=== PATIENT | male | born 1935 | race Caucasian/White ===

== ENCOUNTER 2016-11-08 15:44 | Inpatient (IN) | payer MEDICARE, OTHER ==
[~2016-11-08] VITALS: Ht 172.7 cm; Wt 77.3 kg
[2016-11-08 15:48] VITALS: BP 111/67; PULSE 107; RESP 14; O2SAT 91
--- NOTE | 2016-11-08 15:57 | ED.REPORT ---
HPI-General Illness Date of Service November 08, 2016 ED Provider: Edy Hart MD Patient is an 81 year old male with a history of fibromyalgia, an enlarged prostate and hypertension who presents to the ED complaining of general weakness onset two days ago. Associated symptoms include dysuria, cough, fever and urinary retention. Per the patient's , the patient collapsed this morning and last night but did not lose consciousness. He denies shortness of breath. Per the patient's daughter, the patient hasn't been drinking much fluids lately. He is not currently taking any anticoagulants but is on Prednisone. Patient denies recent head trauma or injury. Nursing Notes Stated Complaint: WEAKNESS Chief Complaint: General Complaint Nursing Notes Reviewed: Yes Allergies: Coded Allergies: No Known Allergies (Unverified , 11/08/16) Scheduled Amitriptyline (Amitriptyline) 10 Mg Tablet 20 MG PO HS Cholecalciferol (Vitamin D3) (Vitamin D3) 2,000 Unit Tablet 4,000 UNIT PO QAM Fish Oil/Dha/Epa (Fish Oil 1,200 mg Fish Oil) 1 Each Capsule 1 EACH PO BIDWM Multivit with Calcium,Iron,Min (Therapeutic M) 1 Each Tablet 1 EACH PO DAILY PredniSONE (PredniSONE) 1 Mg Tab 4 MG PO DAILYWM PREDNISONE 4 MG IN AM AND 2 MG IN PM PredniSONE (PredniSONE) 1 Mg Tab 2 MG PO DAILYWD PREDNISONE 4 MG IN AM AND 2 MG IN PM Tadalafil (Cialis) 5 Mg Tablet 5 MG PO HS Terazosin (Terazosin) 10 Mg Capsule 10 MG PO HS General Time Seen by MD: 15:56 Chief Complaint Weakness Hx Obtained From: Patient, Spouse Sudden in Onset?: Yes Onset Occurred: 2 days ago Symptom Duration: Since onset Associated with: Reports: Cough, Fever Recent Healthcare: No recent doctor visit, No recent hospitalization Past Medical History Past Medical History Notes: Code status: full code Past Medical History fibromyalgia enlarged prostate Reports: Hypertension Past Surgical History none reported Smoking History Unknown if Ever Smoker Social History Alcohol Use: "Social" Other Social History: Good social support, Ambulatory Status Independent Review of Systems Full Review of Systems Constitutional: Reports: Fever, Weakness - generalized Respiratory: Reports: Non-productive cough, Denies: Shortness of breath Male: Reports Dysuria, Reports Urination decreased Neurologic: Reports: Weakness, Denies: Change LOC Complete sys rev & neg: except as marked. Physical Exam Vital Signs Vital Signs Date Time Temp Pulse Resp B/P Pulse Ox O2 Delivery O2 Flow Rate FiO2 11/08/16 17:51 93 33 120/66 91 Nasal Cannula 3 11/08/16 16:44 38.1 98 20 135/71 94 11/08/16 15:48 37.7 107 14 111/67 91 Room Air Initial VS: Reviewed General/Constitutional: Awake, Alert Head / Eyes: Atraumatic, Normocephalic, PERRL, EOMI ENT: Atraumatic, Airway patent Mouth: Positive: Mucous membranes dry Neck: Atraumatic, Supple Respiratory / Chest: Atraumatic, Breath sounds NL, Breath sounds = bilat, No respiratory distress tachypneic Cardiovascular: Heart sounds NL, No gallop, No murmurs Heart Rate / Rhythm: Positive: Tachycardia Abdomen: Atraumatic, Soft, Non-tender Bowel Sounds / Distention: Positive: Bowel sounds hypoactive bladder not palpably distended Back: Atraumatic, Non-tender, No paraspinal tenderness, No CVA tenderness Lower Extremity / Pelvis / MS: Atraumatic, Full range of motion strength 5/5 bilateral moving all extremities Skin: Atraumatic, Color NL, No rash, Warm, Dry Neurologic: Oriented X3, No motor deficits, No sensory deficits Psychiatric: Affect NL, Mood NL Interpretation & Diagnostics Lab Results Interpretation Result Diagram: 11/08/16 1618 11/08/16 1618 Test 11/08/16 16:18 11/08/16 16:40 11/08/16 17:34 White Blood Count 9.7th/mm3 (3.8-10.1) Red Blood Count 4.70mil/mm3 (4.40-5.80) Hemoglobin 14.2g/dL (13.8-17.2) Hematocrit 40.7% (41.0-50.0) Mean Corpuscular Volume 86.6fL (81-100) Mean Corpuscular Hemoglobin 30.2pg (27.0-35.0) Mean Corpuscular Hemoglobin Concent 34.9% (32.0-37.0) Red Cell Distribution Width 14.4% (12.3-15.4) Platelet Count 181bil/L (150-400) Neutrophils (%) (Auto) 75.1% (40-74) Lymphocytes (%) (Auto) 10.8% (14-46) Monocytes (%) (Auto) 13.4% (4-12) Eosinophils (%) (Auto) 0.1% (0-5) Basophils (%) (Auto) 0.3% (0-3) Erythrocyte Sedimentation Rate 18mm/hr (0-30) Sodium Level 129mEq/L (134-144) Potassium Level 3.5mEq/L (3.5-5.2) Chloride Level 95mEq/L (97-108) Carbon Dioxide Level 17mmol/L (18-29) Blood Urea Nitrogen 21mg/dL (8-27) Creatinine 1.28mg/dL (0.76-1.27) Estimat Glomerular Filtration Rate 57mL/min (>59) Glucose Level 160mg/dL (60-99) Calcium Level 8.5mg/dL (8.5-10.1) Total Bilirubin 1.9mg/dL (0.0-1.2) Aspartate Amino Transf (AST/SGOT) 16U/L (0-50) Alanine Aminotransferase (ALT/SGPT) 11U/L (0-44) Alkaline Phosphatase 43U/L (25-160) Troponin T < 0.010ug/L (0.0-0.011) Total Protein 6.8g/dL (6.4-8.4) Albumin 3.1g/dL (3.4-5.0) Lipase 14U/L (13-60) Lactic Acid Level 1.3mmol/L (0.4-2.0) Urine Color Dark yellow (YELLOW) Urine Appearance Clear (CLEAR,HAZY) Urine pH 6.0 (5.0-8.0) Urine Specific Steedman 1.020 (1.003-1.035) Urine Protein 30mg/dL (NEG,TRACE) Urine Glucose (UA) Negativemg/dL (NEGATIVE) Urine Ketones Negativemg/dL (NEGATIVE) Urine Occult Blood Moderate (NEGATIVE) Urine Nitrite Negative (NEGATIVE) Urine Bilirubin Negative (NEGATIVE) Urine Urobilinogen 2.0mg/dL (NORMAL) Urine Leukocyte Esterase Negative (NEGATIVE) Urine RBC 3-10/hpf (0-2) Urine WBC 0-5/hpf (0-5) Urine Epithelial Cells None/hpf (NONE-MOD) Urine Crystals None seen (NONE SEEN) Urine Bacteria Few/hpf (NONE-FEW) Urine Hyaline Casts None/lpf (NONE) Urine Granular Casts None seen (NONE SEEN) Urine Waxy Casts None seen (NONE SEEN) Urine Red Blood Cell Casts None seen (NONE SEEN) Urine White Blood Cell Casts None seen (NONE SEEN) Urine Mucus None seen (None Seen) Urine Trichomonas None seen (NONE SEEN) Urine Yeast None (NONE SEEN) Urinalysis Comment None Urine Culture Reflexed Not indicated ECG Interpretation ECG Interpretation: sinus tachycardia, rate 99 LBBB Time: 16:48 Interpreted by: ED physician X-Ray Chest Interpretation Chest Xray Interpretation: IMPRESSION: Bilateral perihilar pulmonary opacities most consistent with pneumonia. Recommend radiographic followup to resolution. If findings persist, chest CT with contrast will be needed to exclude any underlying mass. Dictated by: Darnell Moya M.D. on 11/08/2016 at 17:12 Approved by: Darnell Moya M.D. on 11/08/2016 at 17:13 View: Portable, 1 view Interpretation / Wet Read by: Interpret - Radiologist Re-Eval/Medical Decision Med Decision/Clinical Course 81-year-old male on chronic prednisone for polymyalgia rheumatica. Generalized weakness for 48 hours with fever and tachypnea. On arrival he appears ill. Had not taken his prednisone today. Given normal saline 2 L hydrocortisone 100 mg IV. Blood cultures are obtained. Chest x-ray shows no pneumonia, he has had no recent hospitalizations or antibiotic treatment therefore treated with antibiotic coverage for community acquired pneumonia. We will be admitted to the hospitalist service. Source of Hx: Old records Time of Eval: 17:27 Re-Evaluation/Progress Note: Discussed code status: full code. Discussed results and plan for admit. The patient understands and agrees to the plan for admit. All questions were addressed. Consultation : Referral / Consult Name: Sky Mays MD Consulted With: Hospitalist Call Returned at: 17:57 Independent Producer: Agrees with eval, Agrees with plan, Accepts admit Counseled Regarding: Diagnosis, Lab results, Need for admission Discharge & Departure Primary Impression: Pneumonia Pneumonia type: due to unspecified organism Laterality: bilateral Lung location: unspecified part of lung Qualified Code: J18.9 - Pneumonia, unspecified organism Additional Impression: Weakness Disposition: ADMITTED TO HOSPITAL Discharge Condition All VS Reviewed: Yes Condition: Stable Referrals: Isaac Nails MD (PCP) Scarlet Dyson MD Attestation Portions of this note were transcribed by Gabriela Amaya. I, Dr. Chahal personally performed the history, physical exam and medical decision-making; I reviewed and confirmed the accuracy of the information in the transcribed note. Signed by: Andrés Huston, 11/08/16 and 1800 copies to: Isaac Nails MD; Scarlet Dyson MD, Donald L MD November 08, 2016 15:57 Nydia Amaya November 08, 2016 16:13
[2016-11-08] MEDS ORDERED: 0.9% Sodium Chloride 1,000 ML IV ONE ×2 (16:18→17:35)
[2016-11-08] MEDS ORDERED: Hydrocortisone 50 mg/mL 2 mL Inj IVPUSH ONE (16:20)
[2016-11-08 16:44] VITALS: BP 135/71; PULSE 98; RESP 20; O2SAT 94
[2016-11-08 16:53] LABS: BASOPHILS % (AUTO) 0.3 % (0-3); EOSINOPHILS % (AUTO) 0.1 % (0-5); MONOCYTES % (AUTO) 13.4 % (4-12); Mean Corpuscular Hemoglobin 30.2 pg (27.0-35.0); Mean Corpuscular Volume 86.6 fL (81-100); NEUTROPHILS % (AUTO) 75.1 % (40-74); Platelet Count 181 bil/L (150-400)
[2016-11-08 17:14] LABS: TROPONIN T < 0.010 ug/L (0.0-0.011)
--- NOTE | 2016-11-08 17:14 | DRSVH ---
PROCEDURE: X-RAY CHEST ONE VIEW, PORTABLE ([id number]) INDICATIONS: sepsis TECHNIQUE: One view of the chest was acquired. COMPARISON: [facility], CR, XR CHEST 2VW, 09/24/2015, 16:35. FINDINGS: Surgical changes and devices: None. Lungs and pleura: No pleural effusions or pneumothorax. Bilateral perihilar pulmonary opacities. Mediastinum: Mediastinal contours appear normal. Heart size is normal. Bones and chest wall: No suspicious bony lesions. Overlying soft tissues appear unremarkable. IMPRESSION: Bilateral perihilar pulmonary opacities most consistent with pneumonia. Recommend radiogr aphic followup to resolution. If findings persist, chest CT with contrast will be needed to exclude a ny underlying mass. Dictated by: Darnell Moya M.D. on 11/08/2016 at 17:12 Approved by: Darnell Moya M.D. on 11/08/2016 at 17:13
[2016-11-08 17:22] LABS: Lipase 14 U/L (13-60); Magnesium 1.6 mg/dL (1.6-2.6)
[2016-11-08 17:23] LABS: ERYTHROCYTE SEDIMENTATION RATE 18 mm/hr (0-30)
[2016-11-08] MEDS ORDERED: Azithromycin Inj 500 MG in Dextrose 5% w/Vial Mate 250 ML IV ONE (17:35)
[2016-11-08] MEDS ORDERED: cefTRIAXone Inj 2,000 MG in Dextrose 5% Minibag Plus 50 ML IV ONE (17:35)
[2016-11-08 17:47] LABS: APPEARANCE,URINE CLEAR (CLEAR,HAZY); COLOR,URINE DARK YELLOW (YELLOW); OCCULT BLOOD,URINE MODERATE (NEGATIVE)
[2016-11-08 17:51] VITALS: BP 120/66; PULSE 93; RESP 33; O2SAT 91
[2016-11-08] MEDS: 0.9% Sodium Chloride 1,000 ML IV SCH (17:59)
[2016-11-08] MEDS ORDERED: Polyethylene Glycol (PEG) 17 Gm Powder PO PRN (18:00)
[2016-11-08] MEDS ORDERED: Alum-Mag Hydrox-Simeth 30 mL Suspension PO PRN (18:00)
--- NOTE | 2016-11-08 18:35 | PCM.HPMED ---
Subjective Date of Service November 08, 2016 Primary Provider: Admitting Physician: Sky Mays MD Primary Care Physician: Wilton Alvarado MD Attending Physician: Sky Mays MD Admit Status: From the Emergency Department, Admit to [facility] Team Chief Complaint: 81-year-old generally healthy man presents with acute onset weakness fever and cough History of Present Illness: Patient was in usual state of health until one day prior to admission. At that time he noted anorexia, as well as fever and chills. He awakened on the day of admission feeling extremely fatigued. His fatigue worsened and he experienced tremulousness. He also notes increased cough on the day of admission but no purulent phlegm. His family noticed his reduced energy and brought him to emergency department where he was noted to be febrile and tachycardic. On review of systems: No significant headache. No sinus or throat complaints except dehydration. He had transient right-sided nonpleuritic chest pain this morning which resolved spontaneously. Otherwise no chest discomfort. No abdominal complaints except increased stool frequency today without diarrhea.. He endorses discomfort with urination. He has no flank pain, perineal pain or pain with passage of bowel movements. Review of Systems: 11 system ROS performed. Significant findings noted in history of present illness. Allergies Coded Allergies: No Known Allergies (Unverified , 11/08/16) Home Medications Amitriptyline 20 mg at bedtime Cholecalciferol 4000 units daily Prednisone 6 mg daily Tadalafil 5 mg at bedtime Terazosin 10 mg at bedtime PMH # polymyalgia rheumatica on prednisone 6 mg per day symptoms well controlled # prostatic enlargement - upcoming appointment with Dr. Dyson # History of pneumonia 3 years ago Family History Familial infectious or immune deficiencies. 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 Hx Alcohol Use: Yes (1-2 beers twice per week, rarely 3 beers) Hx Substance Use: No Smoking Status: Former Smoker (smoked for 10 years from age [age]), Unknown if Ever Smoker Living Arrangement: with Family Exam Vital Signs Vital Sign - Last Date Time Temp Pulse Resp B/P Pulse Ox O2 Delivery O2 Flow Rate FiO2 11/08/16 17:51 93 33 120/66 91 Nasal Cannula 3 11/08/16 16:44 38.1 Exam Constitutional: Suntanned, appears fatigued; no acute distress; vital signs noted Eyes: sclerae anicteric, no conjunctival pallor, ENMT: ears, nose atraumatic; oral mucosa very dry Neck: supple, JVD absent Chest: symmetric expansion, no pain or lesions Resp: Inspiratory crackles bibasilar left greater than right, no wheezes, rales or dullness Cardiac: S1, S2, regular, no murmur Abdomen: bowel sounds present, nontender, no organomegaly : inspection WNL, no palpable bladder discomfort Musculoskeletal: no joints with acute erythema, swelling; contractures right hand Skin and soft tissues: no rash; no pitting edema Peripheral pulses: normal at wrist, feet Lymphatic: no adenopathy cervical Neurological: Cranial Nerves - face symmetric Reflexes - BJ, KJ symmetric 1+ Motor - 5/5 strength, normal tone Coordination - normal movement, no tremor Sensory - light touch intact Psych & Mental Status - lethargic but generally oriented Lab and Diagnostics Result Diagram: 11/08/16 1618 11/08/16 1618 X-Rays, CTs and MRIs PROCEDURE: X-RAY CHEST ONE VIEW, PORTABLE ([id number]) IMPRESSION: Bilateral perihilar pulmonary opacities most consistent with pneumonia. Recommend radiographic followup to resolution. If findings persist, chest CT with contrast will be needed to exclude any underlying mass. Dictated by: Darnell Moya M.D. on 11/08/2016 at 17:12 . 12-lead ECG 11/08 16:48 Sinus rhythm with first-degree AV block, left bundle branch block, nonspecific ST-T wave changes, QTC 524 Assessment & Plan Generally healthy 81-year-old man presents with acute onset of fevers, chills, cough and weakness, seizures criteria and pulmonary infiltrates. # Pneumonia, acute, present on admission. SIRS criteria temperature 38.1, heart rate 107. Blood pressure stable and lactate is not elevated. No severe sepsis. Mild oxygen deficit. Mild metabolic encephalopathy. Clinical diagnosis is community-acquired pneumonia. CURB65 is 3 for age, BUN, mild confusion. - Ceftriaxone plus azithromycin - Sputum culture - Respiratory pathogen PCR - Oxygen as needed - IV hydration # Acute kidney injury. Admitting serum creatinine 1.28. Urine concentrated likely prerenal azotemia - IV hydration - Repeat BMP in a.m. and further workup if persistent # Hyponatremia, acute. Likely hypovolemic hyponatremia. Likely mild. - IV normal saline hydration - Repeat BMP # Dysuria, acute. Differential is UTI versus bladder discomfort due to dehydration and urine concentration. Urinalysis shows concentration but no significant pyuria or bacteriuria. - Follow symptoms clinically -Tamsulosin 0.4 # Hyperbilirubinemia, duration unknown. Systemic infection related versus benign hyperbilirubinemia (Gilbert's). There are no right upper quadrant symptoms. - Consider repeat CMP in 2 days and further workup if persistent # Left bundle branch block, first-degree AV block, duration unknown. Patient also gave history of transient right-sided chest pain which seems nonanginal. - Telemetry monitoring - Repeat troponin # Polymyalgia rheumatica, chronic. The patient is on a non-suppressive dose of prednisone. No indication for hydrocortisone stress dosing. - Continue usual prednisone # Venous thrombolysis and prophylaxis -Heparin Pain Evaluation: Adequate Pain Control VTE Prophylaxis: Sub-Q Heparin (Unfractionated) Resuscitation Status: CPR: Attempt Resuscitation Time spent 70 minutes Sky Mays MD November 08, 2016 18:35
[2016-11-08 18:53] VITALS: BP 120/66; PULSE 93; RESP 33; O2SAT 91
[2016-11-08] MEDS ORDERED: CHOL200025 PO (18:55)
[2016-11-08] MEDS ORDERED: PRD1T PO ×2 (18:55)
[2016-11-08] MEDS ORDERED: MULT-140 PO (18:55)
[2016-11-08] MEDS ORDERED: FISH1CAP15 PO (18:55)
[2016-11-08] MEDS ORDERED: TERA10CA5 PO (18:55)
[2016-11-08] MEDS ORDERED: TADA5TAB2 PO (18:55)
[2016-11-08] MEDS ORDERED: AMIT10TA6 PO (18:55)
[2016-11-08 19:07] VITALS: PULSE 95
--- NOTE | 2016-11-08 19:13 | NUR ---
Arrived He arrived from the ED with his and daughter about 1844 and was settled into his room PCC [id number]. Report received from Renetta Huber RN in the ED. Call light placed by him, on 2L of O2, telemetry placed, ensured his IV antibiotics were continuing to infuse, and family wrote contact numbers on the white board. Because it was change of shift the admit and assessment was not completed by this nurse. Gave report to Sivan Bolivar RN. Care continues.
[2016-11-08 20:25] VITALS: BP 109/66; PULSE 84; RESP 32; O2SAT 90
[2016-11-08] MEDS: Potassium Chloride 20 mEq SR Tablet PO SCH (20:37)
[2016-11-08] MEDS: Heparin 5,000 Unit/mL Inj SUBQ SCH (23:39)
[2016-11-09] VITALS (7 sets, daily range): BP systolic 112–151; BP diastolic 61–94; PULSE 87–111; RESP 18–22; O2SAT 91–94
[2016-11-09 04:27] LABS: BASOPHILS % (AUTO) 0.1 % (0-3); EOSINOPHILS % (AUTO) 0.5 % (0-5); MONOCYTES % (AUTO) 11.8 % (4-12); Mean Corpuscular Hemoglobin 29.9 pg (27.0-35.0); Mean Corpuscular Volume 88.6 fL (81-100); NEUTROPHILS % (AUTO) 74.3 % (40-74); Platelet Count 182 bil/L (150-400)
[2016-11-09 05:14] LABS: TROPONIN T 0.01 ug/L (0.0-0.011)
--- NOTE | 2016-11-09 05:18 | NUR ---
Respiratory Pt on 2L NC at beginning of shift with SpO2 89-91%; oxygen increased to 3L with [id number] effect on saturation. Pt switched to oxymask 3L with improvement in SpO2 to 93-94%. Admission documentation completed with patient. Pt requested followup regarding advance directive. IVF infusing at 100mls/hr. VSS, tele SR 90s IVCD with AVBI. Up with 1PA, tolerates well.
[2016-11-09] MEDS: 0.9% Sodium Chloride 1,000 ML IV SCH ×2 (05:41→20:07)
[2016-11-09] MEDS: Potassium Chloride 20 mEq SR Tablet PO SCH ×2 (08:00→12:42)
[2016-11-09] MEDS: predniSONE 1 mg Tablet PO SCH (09:35)
[2016-11-09] MEDS: Heparin 5,000 Unit/mL Inj SUBQ SCH ×3 (09:38→23:27)
[2016-11-09] MEDS: cefTRIAXone Inj 2,000 MG in Dextrose 5% Minibag Plus 50 ML IV SCH (09:42)
[2016-11-09] MEDS: Azithromycin Inj 500 MG in Dextrose 5% w/Vial Mate 250 ML IV SCH (10:20)
--- NOTE | 2016-11-09 13:45 | NUR ---
Evaluation completed. Please go to "Notes" then click on "Assessments and Notes" (bottom left corner of screen). Then select appropriate discipline tab on top of screen.
--- NOTE | 2016-11-09 14:19 | PCM.PNMED ---
Subjective Date of Service November 09, 2016 Subjective He is feeling better today. Less cough which is mostly nonproductive. Less dyspnea and less weakness. No nausea, vomiting or abdominal pain. No fevers or chills. He does not really chronic history of choking. No overnight events Exam Vital Signs Vital Sign - Last Date Time Temp Pulse Resp B/P Pulse Ox O2 Delivery O2 Flow Rate FiO2 11/09/16 13:12 37.3 20 112/61 91 Room Air 11/09/16 10:24 111 11/09/16 00:21 3.00 Intake and Output 11/08/16 11/08/16 11/09/16 Cumulative From/Thru 15:00 23:00 07:00 11/08/16 15:48 - 11/09/16 06:42 Intake Total 1000 ml 2910 ml 3910 ml Output Total 1200 ml 1200 ml Balance 1000 ml 1710 ml 2710 ml Intake Oral 700 ml 700 ml IV Total 1000 ml 2210 ml 3210 ml Output Urine Total 1200 ml 1200 ml Exam Alert and oriented -3, no distress. Fluent speech Anicteric sclera. Lungs are clear with normal rate and effort Heart is regular without murmur gallop or rub Abdomen soft nontender, flat Extremities are free of edema. Skin is free of rash or lesions. IVs and Medications Medications Reviewed: Medications were reviewed in detail Lab and Diagnostics Result Diagram: 11/09/16 0415 11/09/16 0415 X-Rays, CTs and MRIs PROCEDURE: X-RAY CHEST ONE VIEW, PORTABLE ([id number]) IMPRESSION: Bilateral perihilar pulmonary opacities most consistent with pneumonia. Recommend radiographic followup to resolution. If findings persist, chest CT with contrast will be needed to exclude any underlying mass. Dictated by: Darnell Moya M.D. on 11/08/2016 at 17:12 . 12-lead ECG 11/08 16:48 Sinus rhythm with first-degree AV block, left bundle branch block, nonspecific ST-T wave changes, QTC 524 Assessment & Plan Generally healthy 81-year-old man presents with acute onset of fevers, chills, cough and weakness, seizures criteria and pulmonary infiltrates. # Community-acquired Pneumonia, acute, present on admission and improving. SIRS criteria temperature 38.1, heart rate 107. Blood pressure stable and lactate is not elevated. No severe sepsis. Mild oxygen deficit. Mild metabolic encephalopathy. Clinical diagnosis is community-acquired pneumonia. CURB65 is 3 for age, BUN, mild confusion. - Ceftriaxone plus azithromycin - Sputum culture - Respiratory pathogen PCR - Oxygen as needed - IV hydration decrease fluids to 50 an hour #. Dysphagia with a history of choking, by mouth weight. Speech evaluation to check swallow. # Acute kidney injury. POA, and improving. Admitting serum creatinine 1.28. Urine concentrated likely prerenal azotemia - IV hydration, decreased rate - Repeat BMP in a.m. and further workup if persistent # Hyponatremia, acute. POA, and improving. Likely hypovolemic hyponatremia. Likely mild. - IV normal saline hydration -Follow BMP # Dysuria, acute. Differential is UTI versus bladder discomfort due to dehydration and urine concentration. Urinalysis shows concentration but no significant pyuria or bacteriuria. - Follow symptoms clinically -Tamsulosin 0.4, this is relatively stable. The patient has a prostate biopsy scheduled for Wednesday so we may leave the Kauffman catheter in at this point which was placed for retention. # Hyperbilirubinemia, duration unknown. POA, stable Systemic infection related versus benign hyperbilirubinemia (Gilbert's). There are no right upper quadrant symptoms. - Consider repeat CMP in 2 days and further workup if persistent, follow clinically. # Left bundle branch block, first-degree AV block, duration unknown. Patient also gave history of transient right-sided chest pain which seems nonanginal. - Telemetry monitoring - Repeat troponin # Polymyalgia rheumatica, POA and chronic. The patient is on a non-suppressive dose of prednisone. No indication for hydrocortisone stress dosing. - Continue usual prednisone # Venous thrombolysis and prophylaxis -Heparin VTE Prophylaxis: Sub-Q Heparin (Unfractionated) Resuscitation Status: CPR: Attempt Resuscitation Emeka Jansen MD November 09, 2016 14:19
--- NOTE | 2016-11-09 16:20 | NUR ---
Social Work Note: Initial Assessment Data& Assessment: EMR reviewed. SW met with pt and pt at bedside to discuss discharge planning, SW role explained. SW phone number provided on pt white board. Moshe Contreras is a 81 year old male admitted on 11/08/2016 for pneumonia and sepsis. Pt has [employer] [facility] [place] insurance coverage. Pt does not have VA benefits or LTC insurance. Pt sees Wilton Alvarado MD for primary care. Pt lives in [place] with his spouse in a one story home and is independent at baseline. Pt drives and does not use any DME. Pt does not have SNF or HH hx. Pt to transport pt home when medically ready. Pt and pt deny any other needs. No other discharge needs identified. SW to continue to follow in case pt needs or MD orders arise. Plan: Anticipated discharge home via POV when medically ready. Pt and pt deny any other needs. No other discharge needs identified. SW to continue to follow in case pt needs or MD orders arise. JEANNA Fonseca Addendum: 11/09/16 at 1624 by MARILU ARMAS Amended: Links added.
--- NOTE | 2016-11-09 18:17 | NUR ---
COUGHING NOTED AFTER PO INTAKE EVALUATED PATIENT HAVING DIFFICULTY AND COUGH AFTER ORAL INTAKE, EVALUATED OCCURRENCES WHEN HOME, PT. INDICATES HAPPENS OFTEN. MD INFORMED, SPEECH THERAPY EVAL ORDERED SPEECH THERAPY RECOMMENDED EDUCATION OF SMALL SIPS AND BITES, CHIN TUCK, AND MEDICATION IN SAUCE (APPLESAUCE/PUDDING)
--- NOTE | 2016-11-09 23:29 | NUR ---
cough Pt having persistent cough tonight preventing him from being able to sleep. MD notified and orders for Tessalon Pearles and given. Pt feels it has helped and cough is improving.
[2016-11-10] MEDS ORDERED: Codeine-guaiFENesin 10 mL Syrup PO ONE (00:15)
[2016-11-10 01:44] VITALS: BP 142/90; PULSE 89; RESP 20; O2SAT 98
[2016-11-10 03:25] VITALS: BP 150/98; PULSE 104; RESP 22; O2SAT 95
--- NOTE | 2016-11-10 05:52 | NUR ---
cough/sats Cough returned and patient unable to sleep. MD notified and one time order for Guifenesin given. Finally able to sleep around 3 AM. Sats decreased to upper 80's during this time and placed on 2 liters nasal cannula. Sats have been in mid-90's on oxygen. Denies pain. Up with standby assist to bathroom for BM. Kauffman draining yellow urine.
[2016-11-10] MEDS: predniSONE 1 mg Tablet PO SCH (07:44)
[2016-11-10] MEDS: cefTRIAXone Inj 2,000 MG in Dextrose 5% Minibag Plus 50 ML IV SCH (07:45)
[2016-11-10] MEDS: Heparin 5,000 Unit/mL Inj SUBQ SCH (07:51)
[2016-11-10 07:55] VITALS: BP 151/93; PULSE 95; RESP 26; O2SAT 95
--- NOTE | 2016-11-10 08:29 | NUR ---
Respiratory Pt c/o increased SOB and feeling that he "could not get enough air." Pt sat up on side of bed. Checked oxygen saturation and it was 94% on 2 LPM via nasal cannula. This was the same as when I checked it earlier today. Pt reported that sitting up made it easier to breath. Suggested that pt eat breakfast while sitting up at edge of bed. Will maintain pt on supplemental oxygen to ease his respiratory discomfort.
[2016-11-10 09:28] VITALS: PULSE 102
[2016-11-10] MEDS: Azithromycin Inj 500 MG in Dextrose 5% w/Vial Mate 250 ML IV SCH (10:41)
[2016-11-10 11:46] VITALS: BP 133/93; PULSE 98; RESP 22; O2SAT 96
--- NOTE | 2016-11-10 14:02 | PCM.DIMED ---
Discharge Instructions Date of Service November 10, 2016 Dates of Hospitalization November 08, 2016 at 18:05 Discharge Diagnosis Discharge Diagnosis # Community-acquired Pneumonia,improved. #. Dysphagia . Stable. # Acute kidney injury.resolved. # Hyponatremia, resolved. # Dysuria and BPH, stable. # Hyperbilirubinemia, stable . # Polymyalgia rheumatica, stable. Call your provider Call your provider for: Fever or Chills, Shortness of breath, Other (chest pain or worsening cough) Patient Instructions Patient Instructions Remember to keep her chin down all swallowing to help avoid choking. Follow-up Provider: Wilton Alvarado MD Follow-up with PCP in: 1 week Emeka Jansen MD November 10, 2016 14:02
[2016-11-10] MEDS ORDERED: CEFU500T61 PO (14:07)
[2016-11-10] MEDS ORDERED: TAMS0.4C98 PO (14:07)
[2016-11-10] MEDS ORDERED: AZIT500T5 PO (14:07)
--- NOTE | 2016-11-10 16:07 | NUR ---
Social Work Note: Discharge Data& Assessment: EMR reviewed. Per pt is medically ready to discharge. SW met with pt at bedside to confirm discharge plan and assess for any unmet needs. Moshe Contreras is a 81 year old male admitted on 11/08/2016 for pneumonia and sepsis. Per pt is medically improved and ready for discharge. Pt is on room air and is ambulating at baseline. Pt to transport home. No other needs identified. Pt denies any other needs. All updated and agreeable to plan. Plan: Per pt is medically ready to discharge home via POV. Pt to transport home. No other needs identified. Pt denies any other needs. All updated and agreeable to plan. JEANNA Fonseca
--- NOTE | 2016-11-10 16:17 | NUR ---
Discharge Pt discharged to home with spouse via private vehicle at 1540 hrs. VSS. Oxygen saturation at 94 at rest and post walking exercise. PIV removed intact. All personal possessions sent with pt. Discharge and follow up instructions given to pt, and he expressed understanding.
--- NOTE | 2016-11-11 07:39 | PCM.DC.MED ---
Discharge Summary Date of Service November 10, 2016 Dates of Hospitalization Date of Hospital Admission November 08, 2016 at 18:05 Date of Discharge: November 10, 2016 Providers: Admitting Physician: Sky Mays MD Primary Care Physician: Wilton Alvarado MD Attending Physician: Sky Mays MD Diagnosis at Time of Discharge Diagnosis at Time of Discharge # Community-acquired Pneumonia,improved. #. Dysphagia . Stable. # Acute kidney injury.resolved. # Hyponatremia, resolved. # Dysuria and BPH, stable. # Hyperbilirubinemia, stable . # Polymyalgia rheumatica, stable. Consultations None Procedures XRay, CTs & MRIs PROCEDURE: X-RAY CHEST ONE VIEW, PORTABLE ([id number]) IMPRESSION: Bilateral perihilar pulmonary opacities most consistent with pneumonia. Recommend radiographic followup to resolution. If findings persist, chest CT with contrast will be needed to exclude any underlying mass. Dictated by: Darnell Moya M.D. on 11/08/2016 at 17:12 . ECG 12 Lead 11/08 16:48 Sinus rhythm with first-degree AV block, left bundle branch block, nonspecific ST-T wave changes, QTC 524 Cardiac Echo Impression None Invasive Procedures None Brief History Patient was in usual state of health until one day prior to admission. At that time he noted anorexia, as well as fever and chills. He awakened on the day of admission feeling extremely fatigued. His fatigue worsened and he experienced tremulousness. He also notes increased cough on the day of admission but no purulent phlegm. His family noticed his reduced energy and brought him to emergency department where he was noted to be febrile and tachycardic. On review of systems: No significant headache. No sinus or throat complaints except dehydration. He had transient right-sided nonpleuritic chest pain this morning which resolved spontaneously. Otherwise no chest discomfort. No abdominal complaints except increased stool frequency today without diarrhea.. He endorses discomfort with urination. He has no flank pain, perineal pain or pain with passage of bowel movements. Hospital Course Generally healthy 81-year-old man presents with acute onset of fevers, chills, cough and weakness, seizures criteria and pulmonary infiltrates. # Community-acquired Pneumonia, acute, present on admission and improving. SIRS criteria temperature 38.1, heart rate 107. Blood pressure stable and lactate is not elevated. No severe sepsis. Mild oxygen deficit. Mild metabolic encephalopathy. Clinical diagnosis is community-acquired pneumonia. CURB65 is 3 for age, BUN, mild confusion. - Ceftriaxone plus azithromycin - Sputum culture - Respiratory pathogen PCR - Oxygen as needed - IV hydration decrease fluids to 50 an hour This patient was treated with antibiotics for. He improved in a relatively linear fashion. The day of discharge he had saturations in the 90s on room air at rest and with exertion felt mostly improved and requested discharge home. #. Dysphagia with a history of choking, by mouth weight. Speech evaluation to check swallow. Swallow evaluation was within normal limits. He was advised to consider chin tuck before eating. # Acute kidney injury. POA, and improving. Admitting serum creatinine 1.28. Urine concentrated likely prerenal azotemia - IV hydration, decreased rate - Repeat BMP in a.m. and further workup if persistent This improved with treatment of pneumonia and fluid resuscitation. # Hyponatremia, acute. POA, and improving. Likely hypovolemic hyponatremia. Likely mild. - IV normal saline hydration -Follow BMP Improved with fluid resuscitation. # Dysuria, acute. Differential is UTI versus bladder discomfort due to dehydration and urine concentration. Urinalysis shows concentration but no significant pyuria or bacteriuria. - Follow symptoms clinically -Tamsulosin 0.4, this is relatively stable. The patient has a prostate biopsy scheduled for Wednesday so we may leave the Kauffman catheter in at this point which was placed for retention. # Hyperbilirubinemia, duration unknown. POA, stable Systemic infection related versus benign hyperbilirubinemia (Gilbert's). There are no right upper quadrant symptoms. - Consider repeat CMP in 2 days and further workup if persistent, follow clinically. # Left bundle branch block, first-degree AV block, duration unknown. Patient also gave history of transient right-sided chest pain which seems nonanginal. - Telemetry monitoring - Repeat troponin # Polymyalgia rheumatica, POA and chronic. The patient is on a non-suppressive dose of prednisone. No indication for hydrocortisone stress dosing. - Continue usual prednisone # Venous thrombolysis and prophylaxis -Heparin Exam Vital Signs (Last) Date Time Temp Pulse Resp B/P Pulse Ox O2 Delivery O2 Flow Rate FiO2 11/10/16 11:46 36.8 98 22 133/93 96 Nasal Cannula 2.00 Exam Patient was seen and examined on the day of discharge Test 11/08/16 16:18 11/08/16 16:40 11/08/16 17:34 11/08/16 19:05 Erythrocyte Sedimentation Rate 18mm/hr (0-30) Hemoglobin A1c 6.4% (4.8-5.6) Total Bilirubin 1.9mg/dL (0.0-1.2) Aspartate Amino Transf (AST/SGOT) 16U/L (0-50) Alanine Aminotransferase (ALT/SGPT) 11U/L (0-44) Alkaline Phosphatase 43U/L (25-160) Total Protein 6.8g/dL (6.4-8.4) Albumin 3.1g/dL (3.4-5.0) Lipase 14U/L (13-60) Lactic Acid Level 1.3mmol/L (0.4-2.0) Urine Color Dark yellow (YELLOW) Urine Appearance Clear (CLEAR,HAZY) Urine pH 6.0 (5.0-8.0) Urine Specific [place] 1.020 (1.003-1.035) Urine Protein 30mg/dL (NEG,TRACE) Urine Glucose (UA) Negativemg/dL (NEGATIVE) Urine Ketones Negativemg/dL (NEGATIVE) Urine Occult Blood Moderate (NEGATIVE) Urine Nitrite Negative (NEGATIVE) Urine Bilirubin Negative (NEGATIVE) Urine Urobilinogen 2.0mg/dL (NORMAL) Urine Leukocyte Esterase Negative (NEGATIVE) Urine RBC 3-10/hpf (0-2) Urine WBC 0-5/hpf (0-5) Urine Epithelial Cells None/hpf (NONE-MOD) Urine Crystals None seen (NONE SEEN) Urine Bacteria Few/hpf (NONE-FEW) Urine Hyaline Casts None/lpf (NONE) Urine Granular Casts None seen (NONE SEEN) Urine Waxy Casts None seen (NONE SEEN) Urine Red Blood Cell Casts None seen (NONE SEEN) Urine White Blood Cell Casts None seen (NONE SEEN) Urine Mucus None seen (None Seen) Urine Trichomonas None seen (NONE SEEN) Urine Yeast None (NONE SEEN) Urinalysis Comment None Urine Culture Reflexed Not indicated Magnesium Level 1.6mg/dL (1.6-2.6) Test 11/09/16 04:15 11/10/16 03:35 White Blood Count 8.0th/mm3 (3.8-10.1) Red Blood Count 4.02mil/mm3 (4.40-5.80) Hemoglobin 12.0g/dL (13.8-17.2) Hematocrit 35.6% (41.0-50.0) Mean Corpuscular Volume 88.6fL (81-100) Mean Corpuscular Hemoglobin 29.9pg (27.0-35.0) Mean Corpuscular Hemoglobin Concent 33.7% (32.0-37.0) Red Cell Distribution Width 14.4% (12.3-15.4) Platelet Count 182bil/L (150-400) Neutrophils (%) (Auto) 74.3% (40-74) Lymphocytes (%) (Auto) 13.0% (14-46) Monocytes (%) (Auto) 11.8% (4-12) Eosinophils (%) (Auto) 0.5% (0-5) Basophils (%) (Auto) 0.1% (0-3) Troponin T 0.010ug/L (0.0-0.011) Procalcitonin 0.31ng/mL (0.00-0.08) Sodium Level 134mEq/L (134-144) Potassium Level 3.9mEq/L (3.5-5.2) Chloride Level 102mEq/L (97-108) Carbon Dioxide Level 17mmol/L (18-29) Blood Urea Nitrogen 18mg/dL (8-27) Creatinine 1.02mg/dL (0.76-1.27) Estimat Glomerular Filtration Rate 74mL/min (>59) Glucose Level 182mg/dL (60-99) Calcium Level 8.3mg/dL (8.5-10.1) Discharge Medications Discharge Medications Amitriptyline (Amitriptyline) 10 Mg Tablet 20 MG PO HS (Reported) Azithromycin (Azithromycin) 500 Mg Tablet 250 MG PO DAILY Prescribed by: EMEKA KAUR MD Cefuroxime Axetil (Cefuroxime) 500 Mg Tablet 500 MG PO BID Prescribed by: EMEKA KAUR MD Cholecalciferol (Vitamin D3) (Vitamin D3) 2,000 Unit Tablet 4,000 UNIT PO QAM ( Reported) Fish Oil/Dha/Epa (Fish Oil 1,200 mg Fish Oil) 1 Each Capsule 1 EACH PO BIDWM ( Reported) Multivit with Calcium,Iron,Min (Therapeutic M) 1 Each Tablet 1 EACH PO DAILY ( Reported) PredniSONE (PredniSONE) 1 Mg Tab 4 MG PO DAILYWM (Reported) PREDNISONE 4 MG IN AM AND 2 MG IN PM PredniSONE (PredniSONE) 1 Mg Tab 2 MG PO DAILYWD (Reported) PREDNISONE 4 MG IN AM AND 2 MG IN PM Tadalafil (Cialis) 5 Mg Tablet 5 MG PO HS (Reported) Tamsulosin (Flomax) 0.4 Mg Capsule 0.4 MG PO HS Prescribed by: EMEKA KAUR MD Terazosin (Terazosin) 10 Mg Capsule 10 MG PO HS (Reported) Followup Plan Disposition: Home Patient Instructions Remember to keep her chin down all swallowing to help avoid choking. Follow-up Provider: Wilton Alvarado MD Follow-up with PCP in: 1 week Time spent 45 minutes Emeka Kaur MD November 11, 2016 07:39
== END 2016-11-10 15:45 | disposition home or self-care (01) | DRG 193 ==
LOC: SED 15:44 → PCC 18:05
PROVIDERS: ADMIT Internal Medicine; ATTEND Internal Medicine
DX: J18.9 Pneumonia, unspecified organism (principal); G93.41 Metabolic encephalopathy; N17.9 Acute kidney failure, unspecified; E87.1 Hypo-osmolality and hyponatremia; R13.10 Dysphagia, unspecified; N40.0 Benign prostatic hyperplasia without lower urinary tract symptoms; M35.3 Polymyalgia rheumatica; I44.0 Atrioventricular block, first degree; I10 Essential (primary) hypertension; Z87.891 Personal history of nicotine dependence

== ENCOUNTER 2016-12-20 14:34 | Inpatient (IN) | payer MEDICARE ==
[2016-12-20] VITALS (10 sets, daily range): BP systolic 129–154; BP diastolic 78–108; PULSE 90–108; RESP 20–38; O2SAT 86–98
[~2016-12-20] VITALS: Ht 172.7 cm; Wt 70.2 kg
[~2016-12-20 14:34] MED LIST: AMIT10TA6 PO; AZIT500T5 PO; CEFU500T61 PO; CHOL200025 PO; FISH1CAP15 PO; MULT-140 PO; PRD1T PO; TADA5TAB2 PO; TAMS0.4C98 PO; TERA10CA5 PO
[2016-12-20 15:08] LABS: BASOPHILS % (AUTO) 0.9 % (0-3); EOSINOPHILS % (AUTO) 10.8 % (0-5); MONOCYTES % (AUTO) 10.1 % (4-12); Mean Corpuscular Hemoglobin 28.8 pg (27.0-35.0); Mean Corpuscular Volume 87.9 fL (81-100); NEUTROPHILS % (AUTO) 50.9 % (40-74); Platelet Count 228 bil/L (150-400)
--- NOTE | 2016-12-20 15:20 | DRSVH ---
PROCEDURE: X-RAY CHEST ONE VIEW, PORTABLE ([id number]) INDICATIONS: CHEST PAIN TECHNIQUE: One view of the chest was acquired. COMPARISON: [facility], CR, XR CHEST 2VW, 11/23/2016, 12:51. FINDINGS: Surgical changes and devices: None. Lungs and pleura: There are low lung volumes with patchy bibasilar opacities consistent with atelecta sis, pneumonia, or aspiration. Mild pulmonary edema is demonstrated. There are small bilateral pleu ral effusions. Mediastinum: Mediastinal contours appear unchanged. Heart size is normal. Bones and chest wall: No suspicious bony lesions. Overlying soft tissues appear unremarkable. IMPRESSION: 1. Small pleural effusions with mild pulmonary edema. 2. Low lung volumes with patchy bibasilar atelectasis, pneumonia, or aspiration. Dictated by: Ivan Hennessy M.D. on 12/20/2016 at 15:16 Approved by: Ivan Hennessy M.D. on 12/20/2016 at 15:17
[2016-12-20 15:31] LABS: TROPONIN T < 0.010 ug/L (0.0-0.011)
--- NOTE | 2016-12-20 15:38 | ED.REPORT ---
HPI-Dyspnea / Wheezing Date of Service Dec 20, 2016 ED Provider: Lorin Ornelas MD 81 y/o male with a history of pneumonia a month ago, fibromyalgia, and hypertension presents to the ED complaining of shortness of breath, onset a week ago which has worsened over the last two days. His pain exacerbates when lying down. Associated sx include chest tightness, chills, fatigue, weakness and a heavy feeling in the lower extremities. The pt also complains of bloating. He denies lower extremity edema, fever, nausea and vomiting. Pt's family member states he has been very anxious lately, especially after his had a stroke recently. Nursing Notes Stated Complaint: DIFFICULTY BREATHING Chief Complaint: Respiratory Distress Nursing Notes Reviewed: Yes Allergies: Coded Allergies: No Known Allergies (Unverified , 11/08/16) Scheduled Amitriptyline (Amitriptyline) 10 Mg Tablet 20 MG PO HS Cholecalciferol (Vitamin D3) (Vitamin D3) 2,000 Unit Tablet 4,000 UNIT PO QAM Fish Oil/Dha/Epa (Fish Oil 1,200 mg Fish Oil) 1 Each Capsule 1 EACH PO BIDWM Multivits-Min/FA/Lycopene/Lut (Centrum Silver Tablet) 1 Each Tablet 1 EACH PO QAM PredniSONE (PredniSONE) 1 Mg Tab 1-4 MG PO DAILYWM PREDNISONE 4 MG IN AM AND 2 MG IN PM PredniSONE (PredniSONE) 1 Mg Tab 1-2 MG PO DAILYWD PREDNISONE 4 MG IN AM AND 2 MG IN PM Tadalafil (Cialis) 5 Mg Tablet 5 MG PO HS Terazosin (Terazosin) 10 Mg Capsule 10 MG PO HS General Time Seen by MD: 15:36 Chief Complaint Shortness of breath Hx Obtained From: Patient Arrived By: Walk-in Sudden in Onset?: No Onset Occurred: 1 week ago Symptom Duration: Since onset Location: : Substernal Quality: Painful Severity: Current: Mild Severity: Maximum: Mild Recent Healthcare: Recent doctor visit Similar Sx Previous: Yes Past Medical History Past Medical History Notes: Code status: full code Past Medical History fibromyalgia enlarged prostate Reports: Hypertension Past Surgical History none reported Smoking History Former Smoker, Unknown if Ever Smoker Social History Alcohol Use: "Social" Other Social History: Good social support, Ambulatory Status Independent Review of Systems Reports: bloating Constitutional: Reports: Chills, Fatigue, Weakness - generalized, Denies: Fever Respiratory: Reports: Shortness of breath Cardiovascular: Reports: Chest pain (chest tightness), Denies: Edema Musculoskeletal: Reports: Extremity pain (heavy feeling in lower extremities) Complete sys rev & neg: except as marked. GI: Denies: Nausea, Vomiting Psychiatric: Reports: Anxiety Physical Exam Initial Vital Signs Vital Signs (First) Date Time Temp Pulse Resp B/P Pulse Ox O2 Delivery O2 Flow Rate FiO2 12/20/16 14:36 36.4 100 29 145/92 98 Room Air Initial VS: Reviewed Head / Eyes: Atraumatic, Normocephalic Abdomen / GI: Soft, Non-tender, No guarding, No rebound, No distention Extremities: Vascular intact, Neuro intact, No swelling, No tenderness Skin: Warm, Dry, No cyanosis Neurologic: Alert, Oriented, Nonfocal General/Constitutional: Awake, Alert, No acute distress, Cooperative Neck: Atraumatic, Supple, Full range of motion Respiratory / Chest: Atraumatic, Breath sounds = bilat, No rhonchi, No wheezing Rales / Rhonchi: Positive: Rales bilateral bases Cardiovascular: Regular rhythm, Heart sounds NL, No murmurs, No rubs Heart Rate / Rhythm: Positive: Tachycardia Elevated JVP Interpretation & Diagnostics Lab Results Interpretation Result Diagram: 12/20/16 1450 12/20/16 1450 Test 12/20/16 14:41 12/20/16 14:50 12/20/16 14:51 Urine Color Yellow (YELLOW) Urine Appearance Clear (CLEAR,HAZY) Urine pH 5.0 (5.0-8.0) Urine Specific [place] 1.025 (1.003-1.035) Urine Protein Tracemg/dL (NEG,TRACE) Urine Glucose (UA) Negativemg/dL (NEGATIVE) Urine Ketones Negativemg/dL (NEGATIVE) Urine Occult Blood Large (NEGATIVE) Urine Nitrite Negative (NEGATIVE) Urine Bilirubin Negative (NEGATIVE) Urine Urobilinogen Normalmg/dL (NORMAL) Urine Leukocyte Esterase Negative (NEGATIVE) Urine RBC >50/hpf (0-2) Urine WBC 0-5/hpf (0-5) Urine Epithelial Cells Few/hpf (NONE-MOD) Urine Crystals None seen (NONE SEEN) Urine Bacteria None/hpf (NONE-FEW) Urine Hyaline Casts None/lpf (NONE) Urine Granular Casts None seen (NONE SEEN) Urine Waxy Casts None seen (NONE SEEN) Urine Red Blood Cell Casts None seen (NONE SEEN) Urine White Blood Cell Casts None seen (NONE SEEN) Urine Mucus None seen (None Seen) Urine Trichomonas None seen (NONE SEEN) Urine Yeast None (NONE SEEN) Urinalysis Comment None Urine Culture Reflexed Not indicated White Blood Count 4.3th/mm3 (3.8-10.1) Red Blood Count 4.38mil/mm3 (4.40-5.80) Hemoglobin 12.6g/dL (13.8-17.2) Hematocrit 38.5% (41.0-50.0) Mean Corpuscular Volume 87.9fL (81-100) Mean Corpuscular Hemoglobin 28.8pg (27.0-35.0) Mean Corpuscular Hemoglobin Concent 32.7% (32.0-37.0) Red Cell Distribution Width 15.0% (12.3-15.4) Platelet Count 228bil/L (150-400) Neutrophils (%) (Auto) 50.9% (40-74) Lymphocytes (%) (Auto) 27.3% (14-46) Monocytes (%) (Auto) 10.1% (4-12) Eosinophils (%) (Auto) 10.8% (0-5) Basophils (%) (Auto) 0.9% (0-3) Sodium Level 140mEq/L (134-144) Potassium Level 3.9mEq/L (3.5-5.2) Chloride Level 106mEq/L (97-108) Carbon Dioxide Level 18mmol/L (18-29) Blood Urea Nitrogen 25mg/dL (8-27) Creatinine 1.23mg/dL (0.76-1.27) Estimat Glomerular Filtration Rate 60mL/min (>59) Glucose Level 146mg/dL (60-99) Calcium Level 8.9mg/dL (8.5-10.1) Total Bilirubin 0.5mg/dL (0.0-1.2) Aspartate Amino Transf (AST/SGOT) 25U/L (0-50) Alanine Aminotransferase (ALT/SGPT) 18U/L (0-44) Alkaline Phosphatase 57U/L (25-160) Troponin T < 0.010ug/L (0.0-0.011) Pro-B-Type Natriuretic Peptide 4431pg/mL (0-486) Total Protein 6.8g/dL (6.4-8.4) Albumin 3.6g/dL (3.4-5.0) Hold [place] Top Tube Received (Received) ECG Interpretation ECG Interpretation: Sinus rhythm. Rate 96 Left bundle branch block Time: 16:06 Interpreted by: ED physician X-Ray Chest Interpretation Chest Xray Interpretation: IMPRESSION: 1. Small pleural effusions with mild pulmonary edema. 2. Low lung volumes with patchy bibasilar atelectasis, pneumonia, or aspiration. Dictated by: Ivan Hennessy M.D. on 12/20/2016 at 15:16 Approved by: Ivan Hennessy M.D. on 12/20/2016 at 15:17 View: Portable, 1 view Interpretation / Wet Read by: Interpret - Radiologist Re-Eval/Medical Decision Med Decision/Clinical Course The patient presents with increasing shortness of breath and inability to lie flat. His exam and other findings are consistent with congestive heart failure. He has new onset CHF and will be admitted for further evaluation and treatment. Re-Evaluation/Progress : Time of Eval: 15:57 Re-Evaluation/Progress Note: Rechecked pt. Discussed lab results, imaging results, diagnosis and plan to admit. Pt understands and agrees with the plan for admission. All questions addressed. Consultation : Referral / Consult Name: Audrey Simeon MD Consulted With: Hospitalist Call Returned at: 17:02 Saw Maker: Will see patient, Agrees with eval, Agrees with plan, Accepts admit Note: Talked to Dr. Keke Jo, resident working with Dr. Simeon. She agrees with the plan to admit the pt. Counseled Regarding: Diagnosis, Lab results, Need for admission Discharge & Departure Impression: Primary Impression: New onset of congestive heart failure Disposition: ADMITTED TO HOSPITAL Discharge Condition All VS Reviewed: Yes Referrals: Wilton Alvarado MD (PCP) Scribe Attestation Portions of this note were transcribed by Bib Arevalo. I, , personally performed the history, physical exam and medical decision- making;I reviewed and confirmed the accuracy of the information in the transcribed note. Signed by Andrés Zelaya. 12/20/16 17:18 copies to: Wilton Alvarado MD, Jena M MD Dec 20, 2016 15:38 Bib Arevalo Dec 20, 2016 16:03
[2016-12-20] MEDS ORDERED: Furosemide 10 mg/mL 2 mL Inj IVPUSH ONE ×2 (16:00→19:50)
[2016-12-20] MEDS ORDERED: Nitroglycerin 2% 1 Gm Ointment TOPICAL ONE (16:00)
[2016-12-20] MEDS ORDERED: MULT-1073 PO (17:01)
[2016-12-20 17:09] LABS: APPEARANCE,URINE CLEAR (CLEAR,HAZY); COLOR,URINE YELLOW (YELLOW); OCCULT BLOOD,URINE LARGE (NEGATIVE)
[2016-12-20 17:10] LABS: UROBILINOGEN,URINE NORMAL (NORMAL)
[2016-12-20] MEDS ORDERED: Ondansetron 2 mg/mL 2 mL Inj IVPUSH PRN ×2 (17:50→19:50)
[2016-12-20] MEDS ORDERED: Alum-Mag Hydrox-Simeth 30 mL Suspension PO PRN ×2 (17:50→19:50)
--- NOTE | 2016-12-20 18:34 | NUR ---
ADMIT Patient arrived on floor from ED at 1805, AAAOx4, gait steady, able to stand and transfer to bed. Oriented to room, call light, MPC and hospital policy. Denies pain or discomfort at this time. Tele shows 1st degree AVB with bigeminal PVCs at times. Denies CP, pressure or discomfort, nitro paste on left anterior chest. Bed low and locked, call light in reach, care and frequent rounding ongoing.
[2016-12-20] MEDS ORDERED: Senna-Docusate 8.6-50 mg Tablet PO PRN (19:50)
[2016-12-20] MEDS ORDERED: Polyethylene Glycol (PEG) 17 Gm Powder PO PRN (19:50)
[2016-12-20] MEDS ORDERED: Furosemide 10 mg/mL 4 mL Inj IVPUSH ONE (20:00)
--- NOTE | 2016-12-20 20:00 | PCM.HPMED ---
Subjective Date of Service Dec 20, 2016 Primary Provider: Admitting Physician: Audrey Simeon MD Primary Care Physician: Wilton Alvarado MD Attending Physician: Audrey Simeon MD Admit Status: From the Emergency Department Chief Complaint: Shortness of breath History of Present Illness: Moshe Contreras is an 81-year-old man with past medical history significant for polymyalgia rheumatica on chronic steroids, prostate cancer, left bundle branch block and first-degree AV block presented to the [facility] emergency department due to worsening shortness of breath over the last several days. Shortness of breath was most notable upon laying flat. The patient felt better when he was sitting up. He denies any lower extremity edema. He denies any cough, paroxysmal nocturnal dyspnea, snoring or history of TRE, fevers, chills. Patient is complaining of chest pressure that was relieved with Nitropaste. He denies any past history of cardiac problems. In the emergency department his vital signs were notable for mild tachypnea and mild hypertension. He was saturating well on room air. Chest x-ray reveals small pleural effusion as well as mild pulmonary edema. In the ED the patient was given 20 mg of IV Lasix with symptomatic relief and improved respiratory status. However several hours later the patient is complaining of again worsening shortness of breath. Review of Systems: A comprehensive review of systems was performed and was negative except as noted above in history of present illness. Allergies Coded Allergies: No Known Allergies (Unverified , 11/08/16) Home Medications Discharge Medications Amitriptyline (Amitriptyline) 10 Mg Tablet 20 MG PO HS (Reported) Azithromycin (Azithromycin) 500 Mg Tablet 250 MG PO DAILY Prescribed by: JOEL KAUR MD Cefuroxime Axetil (Cefuroxime) 500 Mg Tablet 500 MG PO BID Prescribed by: JOEL KAUR MD Cholecalciferol (Vitamin D3) (Vitamin D3) 2,000 Unit Tablet 4,000 UNIT PO QAM ( Reported) Fish Oil/Dha/Epa (Fish Oil 1,200 mg Fish Oil) 1 Each Capsule 1 EACH PO BIDWM ( Reported) Multivit with Calcium,Iron,Min (Therapeutic M) 1 Each Tablet 1 EACH PO DAILY ( Reported) PredniSONE (PredniSONE) 1 Mg Tab 4 MG PO DAILYWM (Reported) PREDNISONE 4 MG IN AM AND 2 MG IN PM PredniSONE (PredniSONE) 1 Mg Tab 2 MG PO DAILYWD (Reported) PREDNISONE 4 MG IN AM AND 2 MG IN PM Tadalafil (Cialis) 5 Mg Tablet 5 MG PO HS (Reported) Tamsulosin (Flomax) 0.4 Mg Capsule 0.4 MG PO HS Prescribed by: JOEL KAUR MD Terazosin (Terazosin) 10 Mg Capsule 10 MG PO HS (Reported) PMH Polymyalgia rheumatica on chronic low-dose steroids Prostate cancer Left bundle-branch block Surgical History Prostate biopsy Family History Patient has 4 children who are alive and well. Social History Hx Alcohol Use: Yes (1-2 beers twice per week, rarely 3 beers) Hx Substance Use: No Smoking Status: Former Smoker Exam Vital Signs Vital Sign - Last Date Time Temp Pulse Resp B/P Pulse Ox O2 Delivery O2 Flow Rate FiO2 12/20/16 17:17 101 32 150/91 95 Room Air 12/20/16 14:36 36.4 Exam Constitutional: Suntanned, appears fatigued; no acute distress; vital signs noted Eyes: sclerae anicteric, no conjunctival pallor ENMT: ears, nose atraumatic; oral mucosa moist and pink Neck: supple, with positive JVD Chest: symmetric expansion, no pain or lesions Resp: Inspiratory crackles bibasilar bilateral, no wheezes, rales or dullness Cardiac: S1, S2, regular, no murmur Abdomen: bowel sounds present, nontender, no organomegaly Musculoskeletal: no joints with acute erythema, swelling; contractures right hand Skin and soft tissues: no rash; no pitting edema Peripheral pulses: normal at wrist bilateral feet Lymphatic: no adenopathy cervical Neurological: Cranial Nerves - face symmetric Motor - 5/5 strength, normal tone Coordination - normal movement, no tremor Sensory - light touch intact Psych & Mental Status - appears fatigued but is alert and oriented 3, mood is appropriate Lab and Diagnostics Result Diagram: 12/20/16 1450 12/20/16 1450 X-Rays, CTs and MRIs X-RAY CHEST ONE VIEW, PORTABLE IMPRESSION: 1. Small pleural effusions with mild pulmonary edema. 2. Low lung volumes with patchy bibasilar atelectasis, pneumonia, or aspiration. Dictated by: Ivan Hennessy M.D. on 12/20/2016 at 15:16 Assessment & Plan Moshe Contreras is an 81-year-old man with past medical history significant for polymyalgia rheumatica on chronic steroids, prostate cancer, left bundle branch block and first-degree AV block presented to the [facility] emergency department due to worsening shortness of breath over the last several days. Acute congestive heart failure, unclear if systolic or diastolic, present on admission, active -Patient's shortness of breath, response to Lasix, elevated BNP, pulmonary edema upon chest x-ray (reviewed by admitting team) are all suggestive of CHF. Negative troponin argues against ischemia as etiology of patient's chest pain shortness of breath. -Echo in the a.m., ordered -CHF teaching by nurse -40 mg IV Lasix twice a day -Daily weights, consider fluid restriction to 2 L per day -We will initiate patient on low-dose FELICIA inhibitor -Await initiation of beta [place] until patient is euvolemic -Low-sodium diet Old left bundle branch block, present on admission, active -Telemetry monitoring Polymyalgia rheumatica, chronic. -The patient is on a non-suppressive dose of prednisone. No indication for hydrocortisone stress dosing. -Continue usual prednisone Venous thrombolysis and prophylaxis -Heparin CODE STATUS: Full code Patient is admitted under inpatient status with anticipated length of stay greater than 2 midnights due to severity of patient's symptoms, complexity of workup, complexity of treatment. Attending Statement The patient was seen and examined together with house staff on 12/20/2016 and I agree with the history, exam and plan as outlined in the note above. Ashleigh Jo DO Dec 20, 2016 17:38 Abiola Lam DO Dec 21, 2016 04:44
[2016-12-20] MEDS ORDERED: Furosemide 10 mg/mL 4 mL Inj IVPUSH SCH (20:30)
[2016-12-20] MEDS ORDERED: TERAZOSIN 10 MG PO SCH (21:00)
[2016-12-20] MEDS: Sodium Chloride LOK Flush 10 mL Syringe IVFLUSH SCH (22:55)
[2016-12-21] VITALS (9 sets, daily range): BP systolic 75–153; BP diastolic 45–90; PULSE 79–94; RESP 20–22; O2SAT 90–95
[2016-12-21] MEDS: Heparin 5,000 Unit/mL Inj SUBQ SCH ×3 (00:21→17:20)
--- NOTE | 2016-12-21 05:01 | NUR ---
respiratory Sats were 86%-87% on RA while resting in bed. RR in the 30s. reported his SOB was better (even with tachypnea). 2L O2 via NC initiated; sats in mid 90s. IV lasix given as ordered. pt had 3655mL out throughout the night using urinal in bed or in the BR. RR in the 20s at this time.
[2016-12-21] MEDS ORDERED: Furosemide 10 mg/mL 2 mL Inj IVPUSH SCH (08:30)
[2016-12-21 08:40] LABS: Mean Corpuscular Hemoglobin 28.9 pg (27.0-35.0); Mean Corpuscular Volume 85.7 fL (81-100)
[2016-12-21 09:14] LABS: Magnesium 1.7 mg/dL (1.6-2.6); TROPONIN T 0.01 ug/L (0.0-0.011)
[2016-12-21] MEDS: Sodium Chloride LOK Flush 10 mL Syringe IVFLUSH SCH ×2 (09:22→17:21)
[2016-12-21] MEDS: Furosemide 10 mg/mL 4 mL Inj IVPUSH SCH ×2 (09:22→19:36)
[2016-12-21] MEDS: predniSONE 1 mg Tablet PO SCH ×2 (09:22→17:31)
[2016-12-21 09:41] LABS: INR 1.15 ratio
--- NOTE | 2016-12-21 11:53 | NUR ---
Social Work-multidisciplinary rounds: SW updated by MD in morning rounds that pt will likely be ready in the next 2 days. Pt to have an echo. SW to see pt today and complete assessment. SW will continue to follow. JEANNA Connolly
--- NOTE | 2016-12-21 15:53 | DRSVH ---
[facility] [address] [place] [address] Echocardiogram Report Name: RONALD MALDONADO Hari e: 12/21/2016 Height: 68 in Hospital Exam Location: [facility] Weight: 154 lb Gender: Male BSA: 1.8 m2 : 1935 Age: 81 yrs BP: 123/81 m mHg Reason For Study: Congestive Heart Failure Ordering Physician: Gregor Pope Performed By: Willy Barrera Referring Physician: CRUZ MILLER Interpretation Summary The left ventricle is normal in size. There is normal left ventricular wall thickness. The ejection fraction is estimated to be 30-35%. Inferior akinesis, severe apical hypokinesis, septal hypokinesis. There is mild to moderate mitral regurgitation. The ascending aorta is mildly enlarged. Procedure: A two-dimensional transthoracic echocardiogram with color flow and Doppler was performed. There is no prior echocardiogram noted for this patient. The study quality was technically good. The patient was in atrial fibrillation with controlled ventricular rate during the exam. Left Ventricle: The left ventricle is normal in size. There is normal left ventricular wall thickness. The ejection fraction is estimated to be 30-35%. Inferior akinesis, severe apical hypokinesis, septal hypokinesis. Diastolic function could not be accurately assessed due to atrial fibrillation. Right Ventricle: The right ventricle is normal in size, thickness and function. Atria: The left atrium is moderately dilated. Right atrial size is normal. The interatrial septum is intact with no evidence for an atrial septal defect. Mitral Valve: The mitral valve is normal. There is mild to moderate mitral regurgitation. There are multiple regurgitant jets present. Aortic Valve: The aortic valve is normal in structure and function. There is trace aortic regurgitation. Tricuspid Valve: The tricuspid valve is not well visualized, but is grossly normal. Pulmonary artery pressures cannot be estimated because of the lack of a measurable TR jet velocity. Pulmonic Valve: The pulmonic valve leaflets are thin and pliable; valve motion is normal. There is no pulmonic valvular regurgitation. Great Vessels: The aortic root is normal size. The ascending aorta is mildly enlarged. The pulmonary artery is normal size. The IVC is of normal diameter and collapses greater than 50% with a sniff. This suggests a low right atrial pressure of 3 mm Hg. Pericardium/ Pleura There is no pericardial effusion. There is a large left -sided pleural effusion. MMode/2D Measurements & Calculations LVIDd: 5.2 cm RA long axis: 5.3 cm LVOT diam: 2.2 cm LVIDs: 4.1 cm LA A2 area: 24.8 cm AoV Opening FS: 21.1 % LA A4 area: 22.3 cm RA area: 13.8 cm EPSS: 0.90 cm LA length (vol) RA vol: 30.7 ml Ao root diam IVSd: 0.85 cm RA : 16.8 ml/m2 LVPWd: 1.0 cm LA vol: 79.0 ml asc Aorta Diam LA vol index Ao Arch Diam (Prox : 43.2 ml/m2 Trans): 2.4 cm EDV(MOD-sp2) LV torres. diameter/BSA LV sys. diameter/BSA RVD1 (basal) (cm/m^2): 2.8 (cm/m^2): 2.2 : 3.3 cm ESV(MOD-sp2) EF(MOD-sp2) TAPSE: 2.0 cm Doppler Measurements & Calculations Ao V2 max MV E max landon PA V2 max: 46.9 cm/sec Ao V2 mean : 100.2 cm/sec : 91.8 cm/sec PA mean P.55 mmHg : 74.8 cm/sec Ao max PG Ao V2 VTI : 4.0 mmHg Ao mean PG BERTRAND(V,D): 2.2 cm2 LVOT Max Landon : 60.3 cm/sec BERTRAND(I,D): 2.3 cm sev ratio LV V1 max PG PA V2 mean BERTRAND indexed to BSA : 36.4 cm/sec (cm^2/m^2): 1.3 LV V1 VTI: 10.9 cmPA pr(Accel) : 33.8 mmHg Electronically signed by: Cirilo Vee on Reading Physician:12/21/2016 03:52 PM
--- NOTE | 2016-12-21 16:07 | NUR ---
Social Work-initial assessment/multidisciplinary rounds: Data:See initial assessment. Pt is a 81 y/o male who was admitted on 12/20/16 for CHF per H&P. Pt's insurance is [employer] and PCP is Wilton Alvarado MD. EMR reviewed. Pt's readmission score is 3-high risk. SW met with pt at bedside, SW role explained. Pt is alert and oriented x3. Pt resides at home with his in [place] where he remains independent with ADLS. Pt drives and does not use any DME. Pt has no HH or SNF history. 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 SW discussed DPOA/ advanced directive, pt confirms this has been completed, SW encouraged a copy to be brought in. SW provided pt with discharge planning checklist and encouraged them to call with any questions. SW provided phone number and plan on white board in room. Pt's will provide transport home. SW will continue to follow. Assessment:Pt who is independent at baseline. Plan:Pt to discharge home when medically stable via POV. No anticipated discharge needs. SW will continue to follow if needs arise. JEANNA Connolly Addendum: 12/21/16 at 1610 by PIETRO ARMAS Amended: Links added.
--- NOTE | 2016-12-21 16:33 | NUR ---
spiritual care: pt request brief visit. pt agreeable for eucharistic visitor and enjoying presence of family members at bedside.
[2016-12-21] MEDS ORDERED: Potassium Chloride 20 mEq SR Tablet PO ONE (17:40)
[2016-12-21] MEDS ORDERED: KCl 40 mEq/D5W 500 mL 40 MEQ in IV Premix 500 EACH IV ONE (17:40)
--- NOTE | 2016-12-21 17:48 | PCM.PNMED ---
Subjective Date of Service Dec 21, 2016 Subjective Says breathing feels much better than yesterday Exam Vital Signs Vital Sign - Last Date Time Temp Pulse Resp B/P Pulse Ox O2 Delivery O2 Flow Rate FiO2 12/21/16 15:50 Supplement Oxygen 12/21/16 13:25 36.2 82 20 108/61 90 12/21/16 05:30 2.00 Intake and Output 12/20/16 12/20/16 12/21/16 Cumulative From/Thru 15:00 23:00 07:00 12/20/16 14:36 - 12/21/16 05:46 Output Total 225 ml 225 ml Balance -225 ml -225 ml Output Urine Total 225 ml 225 ml General: Alert, Cooperative Head: Normal Eyes: Scleral Anicteric Nose: Mucous Membr Moist/[place] Mouth: Mucous Membr Moist/[place] Neck: Supple Chest & Lungs: Chest Wall Normal, Clear to auscultation & percussion Cardiovascular: Regular Rate/Rhythm Pulses: NL carotid, radial, femoral, DP, PT Abdomen: Non-tender, Non-distended, Normoactive bowel tones, Soft Extremities: No cyanosis/clubbing/edma bilat Neurological: Grossly Neurologically Intact, Normal Speech IVs and Medications Medications Reviewed: Medications were reviewed in detail Lab and Diagnostics Result Diagram: 12/21/16 0632 12/21/16 0632 X-Rays, CTs and MRIs X-RAY CHEST ONE VIEW, PORTABLE IMPRESSION: 1. Small pleural effusions with mild pulmonary edema. 2. Low lung volumes with patchy bibasilar atelectasis, pneumonia, or aspiration. Dictated by: Ivan Hennessy M.D. on 12/20/2016 at 15:16 Cardiac Echo Impressions Date of Service: 12/21/161945 Echocardiogram Report Interpretation Summary The left ventricle is normal in size. There is normal left ventricular wall thickness. The ejection fraction is estimated to be 30-35%. Inferior akinesis, severe apical hypokinesis, septal hypokinesis. There is mild to moderate mitral regurgitation. The ascending aorta is mildly enlarged. Electronically signed by: Cirilo Vee on Reading Physician:12/21/2016 03:52 PM Assessment & Plan 81-year-old man with past medical history significant for polymyalgia rheumatica on chronic steroids, prostate cancer, left bundle branch block and first-degree AV block presented to the [facility] emergency department due to worsening shortness of breath over several days. # Acute systolic congestive heart failure, present on admission - Improving with diuresis - Echo showing EF 30-35% with wall motion abnormality - Trop negative - CHF teaching by nurse - Hold further IV Lasix for now given clinically appears fairly euvolemic. - Daily weights and strict I/O - Continue with low-dose FELICIA inhibitor started on admission - Cardiology consult in AM # Acute hypokalemia. Not present on admission - Replete and followup # Old left bundle branch block, present on admission, active - Telemetry monitoring - ? need for Cath # Polymyalgia rheumatica, chronic. Stable - The patient is on a non-suppressive dose of prednisone. No indication for hydrocortisone stress dosing. - Continue usual prednisone # Venous thrombolysis and prophylaxis - Heparin Dispo: 1-2 days pending cardiology eval and recs VTE Mechanical Devices: Intermittant Pneumatic CD John Ortega Dec 21, 2016 17:48
[2016-12-22] VITALS (8 sets, daily range): BP systolic 106–132; BP diastolic 65–90; PULSE 83–106; RESP 20; O2SAT 90–96
[2016-12-22] MEDS: Sodium Chloride LOK Flush 10 mL Syringe IVFLUSH SCH ×4 (00:15→23:52)
[2016-12-22] MEDS: Heparin 5,000 Unit/mL Inj SUBQ SCH ×4 (00:15→23:38)
--- NOTE | 2016-12-22 03:36 | NUR ---
Cardiac Pt denies CP or SOB. KCL rider infused. No overt complications noted.
[2016-12-22 06:43] LABS: BASOPHILS % (AUTO) 0.7 % (0-3); EOSINOPHILS % (AUTO) 10.6 % (0-5); MONOCYTES % (AUTO) 13.3 % (4-12); Mean Corpuscular Hemoglobin 29.4 pg (27.0-35.0); Mean Corpuscular Volume 85.7 fL (81-100); NEUTROPHILS % (AUTO) 51.5 % (40-74); Platelet Count 241 bil/L (150-400)
[2016-12-22 07:19] LABS: Magnesium 1.8 mg/dL (1.6-2.6)
[2016-12-22] MEDS: predniSONE 1 mg Tablet PO SCH ×2 (08:14→18:22)
--- NOTE | 2016-12-22 10:43 | DRSVH ---
PROCEDURE: X-RAY CHEST, TWO VIEWS ([id number]) INDICATIONS: shortness of breath TECHNIQUE: 2 views of the chest were acquired. COMPARISON: [facility], CR, XR CHEST 1VW (PORTABLE), 12/20/2016, 14:48. FINDINGS: Surgical changes and devices: None. Lungs and pleura: There is improved aeration of the bilateral lungs when compared to study dated . There is decreased interstitial prominence. Mild basilar consolidation and small pleural effusion s persist. Mediastinum: Mediastinal contours are normal. Heart size is normal. Bones and chest wall: No suspicious bony abnormalities. Soft tissues appear unremarkable. IMPRESSION: Improved aeration and decreased interstitial opacity suggesting diuresis. Dictated by: Allison Smith M.D. on 12/22/2016 at 10:40 Approved by: Allison Smith M.D. on 12/22/2016 at 10:41
--- NOTE | 2016-12-22 11:42 | NUR ---
Social Work: Multidisciplinary Rounds states pt will be having a cardiology consult today, anticipate pt to be here 1-2 more days. No discharge needs. JEANNA Connolly
--- NOTE | 2016-12-22 16:12 | PCM.PNMED ---
Subjective Date of Service Dec 22, 2016 Subjective Denies any new issues/complaints Exam Vital Signs Vital Sign - Last Date Time Temp Pulse Resp B/P Pulse Ox O2 Delivery O2 Flow Rate FiO2 12/22/16 13:41 36.5 95 20 126/85 93 Room Air 12/21/16 05:30 2.00 Intake and Output 12/21/16 12/21/16 12/22/16 Cumulative From/Thru 14:59 22:59 06:59 12/20/16 14:36 - 12/22/16 06:44 Intake Total 600 ml 800 ml 740 ml 2140 ml Output Total 3575 ml 1225 ml 740 ml 5765 ml Balance -2975 ml -425 ml 0 ml -3625 ml Intake Oral 600 ml 800 ml 240 ml 1640 ml IV Total 500 ml 500 ml Output Urine Total 3575 ml 1225 ml 740 ml 5765 ml Exam General: Alert, Cooperative Head: Normal Eyes: Scleral Anicteric Nose: Mucous Membr Moist/[place] Mouth: Mucous Membr Moist/[place] Neck: Supple Chest & Lungs: Chest Wall Normal, Clear to auscultation bilat Cardiovascular: Regular Rate/Rhythm Pulses: NL radial Abdomen: Non-tender, Non-distended, Normoactive bowel tones, Soft Extremities: No cyanosis/clubbing/edema bilat Neurological: Grossly Neurologically Intact, Normal Speech IVs and Medications Medications Reviewed: Medications were reviewed in detail Lab and Diagnostics Result Diagram: 12/22/16 0555 12/22/16 0555 X-Rays, CTs and MRIs X-RAY CHEST ONE VIEW, PORTABLE IMPRESSION: 1. Small pleural effusions with mild pulmonary edema. 2. Low lung volumes with patchy bibasilar atelectasis, pneumonia, or aspiration. Dictated by: Ivan Hennessy M.D. on 12/20/2016 at 15:16 Cardiac Echo Impressions Date of Service: 12/21/16 194 Echocardiogram Report Interpretation Summary The left ventricle is normal in size. There is normal left ventricular wall thickness. The ejection fraction is estimated to be 30-35%. Inferior akinesis, severe apical hypokinesis, septal hypokinesis. There is mild to moderate mitral regurgitation. The ascending aorta is mildly enlarged. Electronically signed by: Cirilo Vee on Reading Physician:12/21/2016 03:52 PM Assessment & Plan 81-year-old man with past medical history significant for polymyalgia rheumatica on chronic steroids, prostate cancer, left bundle branch block and first-degree AV block presented to the [facility] emergency department due to worsening shortness of breath over several days. # Acute systolic congestive heart failure, present on admission - Improving with diuresis - Echo showing EF 30-35% with wall motion abnormality - Trop negative - CHF teaching by nurse - Continue IV Lasix - Daily weights and strict I/O - Continue with low-dose FELICIA inhibitor started on admission - Cardiology consulted. Will followup with recs # Acute hypokalemia. Not present on admission - Resolved with repletion # Old left bundle branch block, present on admission, active - Telemetry monitoring - ? need for Cath # Polymyalgia rheumatica, chronic. Stable - The patient is on a non-suppressive dose of prednisone. No indication for hydrocortisone stress dosing. - Continue usual prednisone # Venous thrombolysis and prophylaxis - Heparin Dispo: 1-2 days pending cardiology eval and recs VTE Mechanical Devices: Intermittant Pneumatic CD John Ortega Dec 22, 2016 16:12
[2016-12-22] MEDS ORDERED: Furosemide 10 mg/mL 4 mL Inj IVPUSH ONE (16:15)
--- NOTE | 2016-12-22 16:22 | CONS ---
[address] [address] CARDIOLOGY INPATIENT CONSULTATION REPORT PATIENT: RONALD MALDONADO I : 1935 MR#: [id number] ADMIT: 12/20/2016 JOB ID: [id number] DATE OF SERVICE: 12/22/2016 REASON FOR CONSULTATION: Shortness of breath and newly diagnosed cardiomyopathy. HISTORY OF PRESENT ILLNESS: This is a very pleasant, 81-year-old gentleman with a history of polymyalgia rheumatica, which he has been having for many years and for which he has been on low dose of prednisone, recently diagnosed prostate cancer which was diagnosed one week ago, history of left bundle branch block and first-degree AV block, history of hypertension and hyperlipidemia, who was admitted to [facility] on December 20, 2016, with worsening shortness of breath. The patient is a little challenging historian. He states that generally he is a physically active person and used to play golf regularly until October 2016 when he was hospitalized at [facility] with community-acquired pneumonia, also had DARIO. He was treated with antibiotics and then he finished p.o. antibiotic course as an outpatient. The patient tells me that since discharge on November 10, 2016, he never fully recovered to his baseline. He has been feeling a little bit tired, weak. He also has been having slight dyspnea on exertion. Periodically may be having some slight chest heaviness here and there. He cannot specify exactly, stating also that in the past, he has a history of slight chest heaviness cannot specify with exertion or not. Especially last two weeks his shortness of breath and dyspnea on exertion got worse, to the point that he had a hard time lying down flat and mostly was sitting up and felt better while sitting up. He had a hard time breathing at night. He noticed a slight swelling in his legs. At the same time, he felt slight chest heaviness which was on and off in the middle of his chest, not radiating anywhere. He cannot tell me exactly if this chest heaviness was exaggerated with deep breathing or not or if it was exertional or not. He denies having palpitations, dizziness, or lightheadedness, presyncopal or syncopal episodes. His shortness of breath and dyspnea on exertion got worse to the point that he came to [facility] ED and he had also chest pressure which improved with nitro paste. On admission, he was slightly hypertensive with blood pressure 145/92 mmHg. On EKG had a sinus rhythm with left bundle branch block and first-degree AV block, and when compared to EKG from November 08, 2016, there were no significant changes. He was slightly anemic with normal kidney function and electrolytes. His troponins were negative. He was diuresed and improved clinically. At some point, was hypokalemic, 3.2, but potassium was repleted and currently potassium level is normal. The patient tells me that after the treatment he got in hospital, he feels better. His dyspnea improved substantially. He is able to lie down flat. His chest heaviness improved. But today he may feel a little slight difficulty breathing again although he is not sure about this and maybe he had one episode of slight chest heaviness. Again, the patient cannot specify exactly anything. He had an echo done on December 21, 2016, which showed that he had a decreased left ventricular function with LVEF at 30% to 35% with normal left ventricular size. Also, it was noted that the patient had inferior akinesis, severe apical hypokinesis, septal hypokinesis. Also he has a mild to moderate mitral regurgitation. His ascending aorta is mildly enlarged. He has normal central venous pressure of 3 mmHg. The patient tells me that he has a history of hypertension, hypercholesterolemia in the past, and he used to be on medications for that, but he stopped by himself at some point. He cannot tell me the reason why he stopped medications. PAST SOCIAL HISTORY: He has a past history of smoking. He stopped smoking when he was 29 years old and before that, smoked 10 years, 1-2 packs a day. He consumes alcohol periodically, beer or mixed drinks. Can be several times a week or less. FAMILY HISTORY: He denies any family history of coronary artery disease. REVIEW OF SYSTEMS: Twelve-point review of systems is negative except the ones mentioned in HPI. PAST MEDICAL HISTORY: Polymyalgia rheumatica, on chronic low-dose steroids. Prostate cancer, newly diagnosed one week ago. Patient tells me that he has an appointment scheduled. He is going to see oncologist and discuss the management. He tells me that there was no urgency or critical situation with his prostate cancer. Left bundle branch block. Hypertension, hyperlipidemia. SURGICAL HISTORY: Prostate biopsy. PHYSICAL EXAMINATION: Vital signs: Temperature is 36.5, pulse 95 beats per minute. Respiratory 20 per minute, blood pressure 126/85 mmHg, pulse oximetry 93% on room air. General: No acute distress. Comfortably lying in the bed. Speaking full sentences, no issues. He is compliant. ENT: Mucous membranes moist, sclerae anicteric. Neck supple. Slight elevation of JVP on 45 degrees. Pulm/lungs: Decreased breathing sounds bilaterally. No crackles. No wheezing. Cardiac: Regular rate and rhythm. No murmur appreciated. JVP slightly elevated at 45 degrees. Abdomen soft, nontender with palpation. Extremities: No lower extremity edema. Skin: Warm and dry. No rash. Neuro: Alert and oriented x3. No gross abnormalities. Labs from December 22, 2016: White blood cells 5.6, red blood cells 4.35, hemoglobin 12.8, hematocrit 37.3. Platelet 241. Sodium 136, potassium 4.3, chloride 102, carbon dioxide 18. BUN 25, creatinine 1.15. Glucose 125, calcium 9.2. Magnesium 1.8. ProBNP 2350. Troponins negative x2. Triglyceride 129, cholesterol 221, LDL 151, HDL 44. Procalcitonin 0.07. TSH normal, 1.59. Chest x-ray on admission showed small pleural effusions with mild pulmonary edema. Low lung volumes with patchy bibasilar atelectasis, pneumonia or aspiration. Chest x-ray from today showed improved aeration and decreased interstitial opacities, suggesting diuresis. Echo, from December 21, 2016, showed left ventricle normal in size. There is normal left ventricular wall thickness. LVEF 30% to 35%. Inferior akinesis, severe apical hypokinesis. Septal hypokinesis. There is mild to moderate mitral regurgitation. The ascending aorta is mildly enlarged. He had a normal central venous pressure, 3 mmHg. ASSESSMENT AND PLAN: This is a very pleasant, 81-year-old gentleman with no prior documented history of coronary artery disease but with history of hypertension and hyperlipidemia, treated in past but not currently, with a history of polymyalgia rheumatica, on chronic low doses steroids, prednisone, newly diagnosed one week ago prostate cancer, who was admitted on December 20, 2016, with worsening shortness of breath, paroxysmal nocturnal dyspnea and orthopnea, in the setting of newly diagnosed cardiomyopathy with left ventricular ejection fraction 30% to 35% with wall motion abnormalities, inferior akinesis, severe apical hypokinesis, septal hypokinesis. Diuresed and improved clinically. Also was having chest discomfort and heaviness which currently is resolved but periodically he still gets some episodes. # Newly diagnosed cardiomyopathy. He does not have signs of significant volume overload one exam. Per ECHO the patient has wall motion abnormalities as noted above. Left ventricular ejection fraction 30% to 35%. It should be noted that there were some more EKGs done after admission, and EKG from yesterday December 21, 2016, and from December 22, 2016, today, show 1-[address] downsloping depression in V5, V6, which were not noted on admission from December 20, 2016. Those ST changes could be due to ischemia. It is possible that his cardiomyopathy could be ischemia related. It should be noted that in 2008 the patient had a myocardial perfusion study. Back at that time he had an excellent exercise capacity without EKG changes or clinical evidence of ischemia and he had a normal myocardial perfusion imaging. In view of his newly diagnosed cardiomyopathy with significant decreased LV function and focal motion abnormalities and episodes of chest discomfort/heaviness and shortness of breath, EKG changes, and taking in mind, his risk factor for coronary artery disease, history of hypertension, hyperlipidemia, past medical history of smoking, gender, and age, would recommend proceed with coronary angiography with possible PCI. # Hypertension. Currently blood pressure well regulated. # Hyperlipidemia. # Sinus tachycardia per telemetry. The patient has been in sinus rhythm with heart rate in 80s, periodically going in one-teens. The patient tells me that since his discharge from hospital in October when he had a community-acquired pneumonia he often has been tachycardic. #Polymyalgia rheumatica. #Newly diagnosed (one week ago) prostate cancer. RECOMMENDATIONS: As I mentioned above, would recommend to proceed with cardiac catheterization to do ischemic workup of his newly diagnosed cardiomyopathy. Would recommend continuing lisinopril 5 mg daily. Would recommend starting him on aspirin 81 mg daily Would recommend starting him on atorvastatin 40 mg daily. Would recommend starting him on metoprolol succinate 12.5 mg daily which will be beneficial for his cardiomyopathy The case was discussed with on-call trial lawyer, Dr. Johnson, who agreed with assessment and plan. We will figure out exactly the day and time when he will have coronary angiography done, it will be done on this admission. EMILIANO
[2016-12-22] MEDS: MeTOProlol XL 25 mg ER24 Tablet PO SCH (16:23)
--- NOTE | 2016-12-22 17:35 | CONS ---
[address] [address] CONSULTATION REPORT PATIENT: RONALD MALDONADO I : 1935 MR#: [id number] ADMIT: 12/20/2016 JOB ID: [id number] DATE OF SERVICE: 12/22/2016 REQUESTED BY: John Ortega MD. I saw and examined the patient. Please see Hira Yates's notes for detail. IMPRESSION: 1. Acute systolic heart failure. 2. Cardiomyopathy with ejection fraction 30% to 35%. 3. Left bundle-branch block of unknown duration. 4. Probable coronary artery disease. 5. Hyperlipidemia. 6. Hypertension. 7. History of smoking of at least one and a half packs per day for 10 years. 8. Newly diagnosed prostate cancer. 9. History of polymyalgia rheumatica. PLAN: It is likely that the patient suffered acute coronary event when he has symptoms of chest pressure and dyspnea. I believe that the cause of his impaired left ventricular systolic function is due to underlying coronary artery disease. The patient should be on statin as his LDL was 151. I will arrange for him to undergo right and left heart catheterization to delineate coronary anatomy and risk stratification. The risks and benefits of the procedure have been explained to the patient. He understands and agrees to proceed with the procedure. EMILIANO
--- NOTE | 2016-12-22 18:44 | NUR ---
Uneventful Day Pt cooperative with staff and care, alert and oriented x 4. Pt denies pain or discomfort, and reported BM of which wasn't charted for the last two days. Pt currently resting comfortably in bed with family at bedside, call light within reach, bed low and locked, intentional rounding.
--- NOTE | 2016-12-22 22:27 | NUR ---
Care Report given and care transferred to Nisha Mckeon RN.
[2016-12-23] VITALS (15 sets, daily range): BP systolic 101–145; BP diastolic 59–96; PULSE 70–102; RESP 16–28; O2SAT 91–97
--- NOTE | 2016-12-23 05:10 | NUR ---
Shift Note Assumed pt care at 2230, pt a/o x4 able to make needs known, IV-SL, on room air, denies pain/discomfort, receiving diuretics, diuresing well, on continuous tele Sinus Rhythm with IVCD per automotive drivability technician, call light in reach at all times.
[2016-12-23] MEDS: Sodium Chloride LOK Flush 10 mL Syringe IVFLUSH SCH ×2 (08:30→14:42)
[2016-12-23] MEDS: predniSONE 1 mg Tablet PO SCH ×2 (10:14→14:42)
[2016-12-23] MEDS: MeTOProlol XL 25 mg ER24 Tablet PO SCH (10:15)
[2016-12-23] MEDS: Heparin 5,000 Unit/mL Inj SUBQ SCH ×2 (10:15→14:42)
--- NOTE | 2016-12-23 11:10 | NUR ---
Social Work: Multidisciplinary Rounds/readiness for discharge: Data:EMR Reviewed. Pt is on day 3 of hospitalization for new onset CHF per H&P. Pt is not medically stable anticipate 1-2 more days. Pt to have heart cath tomorrow and then likely discharge on Wednesday. Per RN notes, pt has been up independent in his room. No anticipated discharge needs. SW will continue to follow if needs arise. Assessment:pt who is independent at baseline. Plan:Pt to discharge home when medically stable via POV. No anticipated discharge needs. SW will continue to follow if needs arise. JEANNA Connolly
[2016-12-23] MEDS: 0.9% Sodium Chloride 1,000 ML IV SCH ×2 (12:30→23:25)
[2016-12-23] MEDS ORDERED: Heparin 1,000 Units/500 mL NS Premix IV ONE (14:34)
[2016-12-23] MEDS ORDERED: Heparin 10,000 Unit/1,000 mL NS Premix IV ONE (14:34)
--- NOTE | 2016-12-23 14:40 | NUR ---
Pt to company laborer. Peripheral IV X2 in place, patent and intact. Pt and family aware of plan of care. Pt has been NPO since breakfast which was around 0830. KLO aware. technical operations vice president aware of pt transfer to labor contractor. Pt AOX3.
[2016-12-23] MEDS ORDERED: fentaNYL-PF 50 mCg/mL 2 mL Inj ONE (14:53)
--- NOTE | 2016-12-23 16:32 | CS94 ---
[address] [address] DIAGNOSTIC CARDIAC CATHETERIZATION PATIENT: RONALD MALDONADO I : 1935 MR#: [id number] ADMIT: 12/20/2016 JOB ID: [id number] SERVICE DATE: 12/23/2016 PATIENT PROFILE: The patient is an 81-year-old male who presented with acute congestive heart failure. PROCEDURE: 1. Right heart catheterization. 2. Retrograde left heart catheterization. 3. Selective coronary angiography. 4. Left ventricular angiogram. VASCULAR CLOSURE DEVICE: Perclose. COMPLICATIONS: None. METHOD: Combined left and right heart catheterization was performed from the right groin under 1% lidocaine local anesthesia, using a 6 and an 8-[place] sheaths. A 7-[place] [employer] catheter was used for the right heart pressures. Cardiac output was determined by the thermodilution technique. Selective coronary angiogram was performed in multiple projections, including cranial and caudal angulations with hand injected contrast via JL-4 and AR modified catheters. The 3DRC catheter could not reach the right coronary ostium. A 6-[place] angulated pigtail catheter was advanced to the left ventricle and left ventricular angiogram was performed in the 30 degree PRESTON view by injecting contrast at the rate of 10 cc/second for 3 seconds. This catheter was withdrawn. Left ventricular angiogram was performed. Following sheath removal, hemostasis was achieved by using a Perclose device. The patient tolerated the procedure well. He was transferred to [facility] in good condition. TOTAL CONTRAST USED: 40 cc. FLUOROSCOPY TIME: 3.5 minutes. TOTAL RADIATION DOSE: 396 mGy. RESULTS: 1. Mean right atrial pressure is 2 mmHg. Right ventricular pressure is 27/0 mmHg. Pulmonary artery pressure is 30/7 mmHg. 2. Mean pulmonary capillary wedge pressure is 9 mmHg with a V wave of 19 mmHg. 3. Aortic pressure is 129/79 mmHg. Left ventricular pressure is 133/88 mmHg. 4. Left ventricular end-diastolic is 16 mmHg. 5. Arterial oxygen saturation is 90%. 6. Cardiac output by the thermodilution technique is 4.1 L/minute with an index of 2.23 L/minute/m2. 7. Selective coronary angiogram: a. Left main coronary artery has distal 10% stenosis. b. The left anterior descending artery has minor irregularity of 20 %-40% stenosis. The major diagonal branch has minor irregularity of 20%-30% stenosis. c. The codominant circumflex artery has minor irregularity of 30%- 40% stenosis. d. The codominant right coronary artery has minor 20%-30% stenosis. 8. Left ventricular angiogram demonstrates dilated left ventricle with visually estimated ejection fraction 20%. The anterolateral wall is severely hypokinetic. The inferior wall is severely hypokinetic. There is 2+ mitral regurgitation. 9. There is no gradient across the aortic valve on catheter withdrawal. CONCLUSION: 1. Severe non ischemic dilated cardiomyopathy. 2. Minor coronary artery disease. 3. Left ventricular end-diastolic pressure is 16 mmHg. 4. Mean pulmonary capillary wedge pressure is 9 mmHg with a V wave of 19 mmHg. 5. Cardiac index is 2.2 L/min/m2. MTDD
[2016-12-23] MEDS ORDERED: 0.9% Sodium Chloride 600 ML IV ONE (16:35)
[2016-12-23] MEDS ORDERED: Sodium Chloride LOK Flush 10 mL Syringe IVFLUSH PRN (16:35)
[2016-12-23] MEDS ORDERED: 0.9% Sodium Chloride 250 ML BOLUS IV PRN (16:35)
[2016-12-23] MEDS ORDERED: Ondansetron 2 mg/mL 2 mL Inj IVPUSH PRN (16:35)
[2016-12-23] MEDS ORDERED: Atropine 1 mg/10 mL (Code) Syringe IVPUSH PRN (16:35)
--- NOTE | 2016-12-23 18:32 | NUR ---
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 AOX3. Tele SR 100-101 first degree block with IVCD. VSS. Pt denies pain. Right groin site clean dry & no signs of hematoma. Right pedal pulse palpable. Bedrest until 1999. NS @ 100cc/hr until 2199. Care ongoing.
--- NOTE | 2016-12-23 18:36 | PCM.PNMED ---
Subjective Date of Service Dec 23, 2016 Subjective Denies any new issues/complaints Exam Vital Signs Vital Sign - Last Date Time Temp Pulse Resp B/P Pulse Ox O2 Delivery O2 Flow Rate FiO2 12/23/16 18:00 102 16 125/78 94 Room Air 12/23/16 09:43 36.6 12/21/16 05:30 2.00 Intake and Output 12/22/16 12/22/16 12/23/16 Cumulative From/Thru 15:00 23:00 07:00 12/20/16 14:36 - 12/23/16 05:21 Intake Total 1272 ml 375 ml 3787 ml Output Total 2025 ml 2000 ml 9790 ml Balance -753 ml -1625 ml -6003 ml Intake Oral 1272 ml 375 ml 3287 ml IV Total 500 ml Output Urine Total 2025 ml 2000 ml 9790 ml # Bowel Movements 0 0 Exam General: Alert, Cooperative Head: Normal Eyes: Scleral Anicteric Nose: Mucous Membr Moist/[place] Mouth: Mucous Membr Moist/[place] Neck: Supple Chest & Lungs: Chest Wall Normal, Clear to auscultation bilat Cardiovascular: Regular Rate/Rhythm Pulses: NL radial Abdomen: Non-tender, Non-distended, Normoactive bowel tones, Soft Extremities: No cyanosis/clubbing/edema bilat Neurological: Grossly Neurologically Intact, Normal Speech IVs and Medications Medications Reviewed: Medications were reviewed in detail Lab and Diagnostics Result Diagram: 12/22/16 0555 12/23/16 0655 X-Rays, CTs and MRIs X-RAY CHEST ONE VIEW, PORTABLE IMPRESSION: 1. Small pleural effusions with mild pulmonary edema. 2. Low lung volumes with patchy bibasilar atelectasis, pneumonia, or aspiration. Dictated by: Ivan Hennessy M.D. on 12/20/2016 at 15:16 Cardiac Echo Impressions Date of Service: 12/21/16 194 Echocardiogram Report Interpretation Summary The left ventricle is normal in size. There is normal left ventricular wall thickness. The ejection fraction is estimated to be 30-35%. Inferior akinesis, severe apical hypokinesis, septal hypokinesis. There is mild to moderate mitral regurgitation. The ascending aorta is mildly enlarged. Electronically signed by: Cirilo Vee on Reading Physician:12/21/2016 03:52 PM Assessment & Plan 81-year-old man with past medical history significant for polymyalgia rheumatica on chronic steroids, prostate cancer, left bundle branch block and first-degree AV block presented to the [facility] emergency department due to worsening shortness of breath over several days. # Acute systolic congestive heart failure, present on admission - Improving with diuresis - Echo showing EF 30-35% with wall motion abnormality - Trop negative - CHF teaching by nurse - Continue IV Lasix - Daily weights and strict I/O - Continue with low-dose FELICIA inhibitor started on admission - Appreciate cardiology consult. Will followup with recs - Followup post cardiac cath on 12/23 # Acute kidney injury. Not present on admission - Likely due to diuresis and pre-renal state - Followup repeat BMP in am # Acute hypokalemia. Not present on admission - Resolved with repletion # Old left bundle branch block, present on admission, active - Telemetry monitoring # Polymyalgia rheumatica, chronic. Stable - The patient is on a non-suppressive dose of prednisone. No indication for hydrocortisone stress dosing. - Continue usual prednisone # Venous thrombolysis and prophylaxis - Heparin Dispo: 1-2 days pending cardiology eval and recs VTE Mechanical Devices: Intermittant Pneumatic CD John Ortega Dec 23, 2016 18:36
[2016-12-24] MEDS: Sodium Chloride LOK Flush 10 mL Syringe IVFLUSH SCH ×3 (00:30→15:35)
[2016-12-24 00:54] VITALS: BP 111/74; PULSE 87; RESP 24; O2SAT 96
[2016-12-24] MEDS: Heparin 5,000 Unit/mL Inj SUBQ SCH ×3 (00:59→16:30)
[2016-12-24 05:44] VITALS: BP_SYST 100; BP_SYST 111; BP_DIAS 65; BP_DIAS 66; BP_DIAS 74; PULSE 88; RESP 24; O2SAT 92
[2016-12-24 07:05] VITALS: PULSE 99
[2016-12-24 07:36] LABS: Mean Corpuscular Hemoglobin 28.9 pg (27.0-35.0); Mean Corpuscular Volume 86.4 fL (81-100)
[2016-12-24] MEDS: MeTOProlol XL 25 mg ER24 Tablet PO SCH (08:10)
[2016-12-24] MEDS: predniSONE 1 mg Tablet PO SCH ×2 (08:10→17:04)
[2016-12-24] MEDS: 0.9% Sodium Chloride 1,000 ML IV SCH ×2 (08:11→15:40)
[2016-12-24 09:52] VITALS: BP 99/64; PULSE 73; RESP 22; O2SAT 92
--- NOTE | 2016-12-24 10:25 | PROG NOTE ---
[address] [address] PROGRESS NOTE PATIENT: RONALD MALDONADO I : 1935 MR#: [id number] ADMIT: 12/20/2016 JOB ID: [id number] DATE: 12/24/2016 SUBJECTIVE: The patient underwent right and left heart catheterization yesterday. It demonstrated severe nonischemic dilated cardiomyopathy with minor coronary artery disease. His cardiac index was 2.2 L/minute/meter squared. The patient feels well today. He would like to go home. He denies chest discomfort, shortness of breath, orthopnea, PND, palpitations, or syncope. PHYSICAL EXAMINATION: Temperature is 36.6. Blood pressure is 99/64. Pulse 73. Body weight is 70.2 kg. Head and face have normal configuration. Anicteric sclerae. Moist mucosa. Neck: Supple. No jugular venous distention. No carotid bruits. Chest has normal expansion. Lungs are clear to auscultation. Heart: The first and second heart sounds normal. S3 is present. No murmur. Abdomen: Soft, nontender. Extremities: No clubbing, cyanosis, or edema. Peripheral pulses are equal bilaterally. Neurologic: Grossly intact. BLOOD TESTS: Show hemoglobin 12.5, WBC 5.3, platelets 282. Sodium 136, potassium 4.3, chloride 101, bicarb 20, BUN 28, creatinine 1.14, glucose 107. IMPRESSION: 1. Severe nonischemic dilated cardiomyopathy. 2. Minor coronary artery disease. 3. Left bundle branch block of unknown duration. 4. Hyperlipidemia with target LDL cholesterol less than 70 mg/dL. 5. History of smoking of at least 1-1/2 packs per day for 10 years. 6. Newly diagnosed prostate cancer. 7. History of polymyalgia rheumatica. PLAN: The patient could be discharged from the hospital today. He will be discharged with: 1. Aspirin 81 mg once daily. 2. Carvedilol 6.25 mg twice daily. 3. Lisinopril 5 mg daily. 4. Atorvastatin 40 mg h.s. He will return to see me in the clinic in six weeks. I have arranged for the patient to have a LifeVest. His left ventricular function will be re-evaluated in three months by echocardiogram to determine whether the patient will require ICD implantation. [facility]
--- NOTE | 2016-12-24 12:10 | NUR ---
Social Work: Multidisciplinary Rounds Pt discussed in rounds. MD states cardiology is still following and that pt likely needs at least 1 more day due to kidney injury. No d/c planning needs anticipated at this time. CHIEF SECURITY OFFICER will continue to follow. JEANNA Dominique
[2016-12-24] MEDS ORDERED: ASPI81TA3 PO (12:41)
[2016-12-24] MEDS ORDERED: LISI-571 PO (12:41)
[2016-12-24] MEDS ORDERED: CARV6.25 PO (12:41)
[2016-12-24] MEDS ORDERED: ATOR40TA69 PO (12:41)
--- NOTE | 2016-12-24 12:47 | PCM.DIMED ---
Discharge Instructions Date of Service Dec 24, 2016 Dates of Hospitalization Dec 20, 2016 at 17:11 Discharge Diagnosis Discharge Diagnosis # Acute systolic congestive heart failure, present on admission. Improved with diuresis - Echocardiogram showing EF 30-35% # Acute kidney injury. Not present on admission. Resolved. # Acute hypokalemia. Not present on admission. Resolved # Severe nonischemic, dilated cardiomyopathy. # Minor coronary artery disease. # Left bundle branch block of unknown duration. # Hyperlipidemia with target LDL cholesterol less than 70 mg/dL. # History of smoking of at least 1-1/2 packs per day for 10 years. # History of recently diagnosed prostate cancer. # History of polymyalgia rheumatica. Diet Discharge Diet: Low fat, Low Sodium, Heart Healthy Activity Discharge Activity: No restrictions Call your provider Call your provider for: Fever or Chills, Shortness of breath, Bleeding, Chest pain Patient Instructions Patient Instructions Seek immediate medical attention if any new or worsening signs or symptoms occur. Follow-up plan 1. Followup with primary care provider within one week 2. Followup with Cardiology (Dr. Mas) in 4-6 weeks. Call to setup appointment [facility] [address] [id number] Follow-up Provider: Wilton Alvarado MD Follow-up with PCP in: 1 week Provider: Guadalupe Johnson MD Follow-up in: Other (4-6 weeks) John Ortega Dec 24, 2016 12:47
--- NOTE | 2016-12-24 13:23 | NUR ---
Discharge Patient given discharge orders. Patient IVs X2 removed fully intact and asymptomatic. Patient given hard copies of scripts. Patient given medication list with written and verbal explanation when next dose is due. Patient given follow up instructions. Patient given informational packets. Patient explained to wait to leave for discharge until cardiology can bring life vest. Pavilion Cutter was paged to be notified of discharge and waiting on life vest. Addendum: 12/24/16 at 1708 by BRAYAN RUCKER RN Cardiology consulted and patient will start Life Vest at home tomorrow.
--- NOTE | 2016-12-24 14:21 | NUR ---
Social Work: Discharge Data: Pt is on day 4 of hospitalization. EMR reviewed. Pt discussed in rounds. stated pt likely ready for d/c tomorrow, but has now determined he is medically ready for d/c today pending the insurance auth of the Life Vest. Cardiology contacted SOLUTION SPECIALIST to pursue the [employer] auth; SOLUTION SPECIALIST spoke with physician practice market manager and case management does not complete this. SOLUTION SPECIALIST notified cardiology and gave them contact at [employer] to try for authorization. No further d/c planning needs at this time. SOLUTION SPECIALIST will continue to follow if needs arise. Assessment: Pt who is independent at baseline. Plan: pt will d/c home via POV when medically stable pending Life Vest insurance authorization being pursued by cardiology. No further d/c planning needs at this time. SOLUTION SPECIALIST will continue to follow if needs arise. JEANNA Dominique
--- NOTE | 2016-12-24 16:35 | PCM.DC.MED ---
Discharge Summary Date of Service Dec 24, 2016 Dates of Hospitalization Date of Hospital Admission Dec 20, 2016 at 17:11 Date of Discharge: Dec 24, 2016 Providers: Admitting Physician: Abiola Lam DO Primary Care Physician: Wilton Alvarado MD Attending Physician: John Mcgrath Diagnosis at Time of Discharge Diagnosis at Time of Discharge # Acute systolic congestive heart failure, present on admission. Improved with diuresis - Echocardiogram showing EF 30-35% # Acute kidney injury. Not present on admission. Resolved. # Acute hypokalemia. Not present on admission. Resolved # Severe nonischemic, dilated cardiomyopathy. # Minor coronary artery disease. # Left bundle branch block of unknown duration. # Hyperlipidemia with target LDL cholesterol less than 70 mg/dL. # History of smoking of at least 1-1/2 packs per day for 10 years. # History of recently diagnosed prostate cancer. # History of polymyalgia rheumatica. Consultations 1. Cardiology (Dr. Mas) Procedures XRay, CTs & MRIs X-RAY CHEST ONE VIEW, PORTABLE IMPRESSION: 1. Small pleural effusions with mild pulmonary edema. 2. Low lung volumes with patchy bibasilar atelectasis, pneumonia, or aspiration. Dictated by: Ivan Hennessy M.D. on 12/20/2016 at 15:16 Date of Service: 12/22/16 0600 PROCEDURE: X-RAY CHEST, TWO VIEWS ([id number]) IMPRESSION: Improved aeration and decreased interstitial opacity suggesting diuresis. Dictated by: Allison Smith M.D. on 12/22/2016 at 10:40 Approved by: Allison Smith M.D. on 12/22/2016 at 10:41 Cardiac Echo Impression Date of Service: 12/21/16 1946 Echocardiogram Report Interpretation Summary The left ventricle is normal in size. There is normal left ventricular wall thickness. The ejection fraction is estimated to be 30-35%. Inferior akinesis, severe apical hypokinesis, septal hypokinesis. There is mild to moderate mitral regurgitation. The ascending aorta is mildly enlarged. Electronically signed by: Cirilo Vee on Reading Physician:12/21/2016 03:52 PM Invasive Procedures DIAGNOSTIC CARDIAC CATHETERIZATION SERVICE DATE: 12/23/2016 PROCEDURE: 1. Right heart catheterization. 2. Retrograde left heart catheterization. 3. Selective coronary angiography. 4. Left ventricular angiogram. CONCLUSION: 1. Severe non ischemic dilated cardiomyopathy. 2. Minor coronary artery disease. 3. Left ventricular end-diastolic pressure is 16 mmHg. 4. Mean pulmonary capillary wedge pressure is 9 mmHg with a V wave of 19 mmHg. 5. Cardiac index is 2.2 L/min/m2. Guadalupe Johnson MD 12/23/16 1549 <Electronically signed by Guadalupe Johnson MD> 12/24/16 3573 Brief History As noted in H&P by Dr. Jo: Moshe Contreras is an 81-year-old man with past medical history significant for polymyalgia rheumatica on chronic steroids, prostate cancer, left bundle branch block and first-degree AV block presented to the [facility] emergency department due to worsening shortness of breath over the last several days. Shortness of breath was most notable upon laying flat. The patient felt better when he was sitting up. He denies any lower extremity edema. He denies any cough, paroxysmal nocturnal dyspnea, snoring or history of TRE, fevers, chills. Patient is complaining of chest pressure that was relieved with Nitropaste. He denies any past history of cardiac problems. In the emergency department his vital signs were notable for mild tachypnea and mild hypertension. He was saturating well on room air. Chest x-ray reveals small pleural effusion as well as mild pulmonary edema. In the ED the patient was given 20 mg of IV Lasix with symptomatic relief and improved respiratory status. However several hours later the patient is complaining of again worsening shortness of breath. Hospital Course # Acute systolic congestive heart failure, present on admission - Improved with diuresis - Echo showing EF 30-35% with wall motion abnormality - Trop negative - CHF teaching by nurse - Cardiology was consulted and patient underwent cardiac cath on 12/23 showing severe nonischemic, dilated cardiomyopathy - Per cardiology recs: 1. Aspirin 81 mg once daily. 2. Carvedilol 6.25 mg twice daily. 3. Lisinopril 5 mg daily. 4. Atorvastatin 40 mg h.s. He will return to see me in the clinic in six weeks. have arranged for the patient to have a LifeVest. His left ventricular function will be re-evaluated in three months by echocardiogram to determine whether the patient will require ICD implantation. # Acute kidney injury. Not present on admission - Likely due to diuresis and pre-renal state - Resolved by day of discharge # Acute hypokalemia. Not present on admission - Resolved with repletion # Left bundle branch block (likely old and chronic), present on admission, active - Telemetry monitoring # Polymyalgia rheumatica, chronic. Stable - The patient is on a non-suppressive dose of prednisone. No indication for hydrocortisone stress dosing. - Continue usual prednisone By day of discharge patient denies any further SOB. Per cardiology consult no need for further diuretics by day of discharge. Exam Vital Signs (Last) Date Time Temp Pulse Resp B/P Pulse Ox O2 Delivery O2 Flow Rate FiO2 12/24/16 09:52 36.8 73 22 99/64 92 Room Air 12/21/16 05:30 2.00 Exam General: Alert, Cooperative Head: Normal Eyes: Scleral Anicteric Nose: Mucous Membr Moist/[place] Mouth: Mucous Membr Moist/[place] Neck: Supple Chest & Lungs: Chest Wall Normal, Clear to auscultation bilat Cardiovascular: Regular Rate/Rhythm Pulses: NL radial Abdomen: Non-tender, Non-distended, Normoactive bowel tones, Soft Extremities: No cyanosis/clubbing/edema bilat Neurological: Grossly Neurologically Intact, Normal Speech Test 12/20/16 14:41 12/20/16 14:50 12/20/16 14:51 12/21/16 06:32 Urine Color Yellow (YELLOW) Urine Appearance Clear (CLEAR,HAZY) Urine pH 5.0 (5.0-8.0) Urine Specific [place] 1.025 (1.003-1.035) Urine Protein Tracemg/dL (NEG,TRACE) Urine Glucose (UA) Negativemg/dL (NEGATIVE) Urine Ketones Negativemg/dL (NEGATIVE) Urine Occult Blood Large (NEGATIVE) Urine Nitrite Negative (NEGATIVE) Urine Bilirubin Negative (NEGATIVE) Urine Urobilinogen Normalmg/dL (NORMAL) Urine Leukocyte Esterase Negative (NEGATIVE) Urine RBC >50/hpf (0-2) Urine WBC 0-5/hpf (0-5) Urine Epithelial Cells Few/hpf (NONE-MOD) Urine Crystals None seen (NONE SEEN) Urine Bacteria None/hpf (NONE-FEW) Urine Hyaline Casts None/lpf (NONE) Urine Granular Casts None seen (NONE SEEN) Urine Waxy Casts None seen (NONE SEEN) Urine Red Blood Cell Casts None seen (NONE SEEN) Urine White Blood Cell Casts None seen (NONE SEEN) Urine Mucus None seen (None Seen) Urine Trichomonas None seen (NONE SEEN) Urine Yeast None (NONE SEEN) Urinalysis Comment None Urine Culture Reflexed Not indicated Hemoglobin A1c 6.5% (4.8-5.6) Total Bilirubin 0.5mg/dL (0.0-1.2) Aspartate Amino Transf (AST/SGOT) 25U/L (0-50) Alanine Aminotransferase (ALT/SGPT) 18U/L (0-44) Alkaline Phosphatase 57U/L (25-160) Total Protein 6.8g/dL (6.4-8.4) Albumin 3.6g/dL (3.4-5.0) [place] Top Tube Received (Received) Troponin T 0.010ug/L (0.0-0.011) Triglycerides Level 129mg/dL (0-149) Cholesterol Level 221mg/dL (100-199) LDL Cholesterol, Calculated 151.200mg/dL (0-99) VLDL Cholesterol 25.800mg/dL HDL Cholesterol 44mg/dL (>39) Cholesterol/HDL Ratio 5.02 (0.0-4.4) Procalcitonin 0.07ng/mL (0.00-0.08) Thyroid Stimulating Hormone (TSH) 1.590uIU/mL (0.450-4.500) Test 12/21/16 08:58 12/22/16 05:55 12/24/16 06:49 Prothrombin Time 12.3sec (8.1-12.5) Prothromb Time International Ratio 1.15ratio Activated Partial Thromboplast Time 26.4sec (22.8-33.0) Neutrophils (%) (Auto) 51.5% (40-74) Lymphocytes (%) (Auto) 23.9% (14-46) Monocytes (%) (Auto) 13.3% (4-12) Eosinophils (%) (Auto) 10.6% (0-5) Basophils (%) (Auto) 0.7% (0-3) Magnesium Level 1.8mg/dL (1.6-2.6) Pro-B-Type Natriuretic Peptide 2350pg/mL (0-486) White Blood Count 5.3th/mm3 (3.8-10.1) Red Blood Count 4.33mil/mm3 (4.40-5.80) Hemoglobin 12.5g/dL (13.8-17.2) Hematocrit 37.4% (41.0-50.0) Mean Corpuscular Volume 86.4fL (81-100) Mean Corpuscular Hemoglobin 28.9pg (27.0-35.0) Mean Corpuscular Hemoglobin Concent 33.4% (32.0-37.0) Red Cell Distribution Width 14.9% (12.3-15.4) Platelet Count 262bil/L (150-400) Sodium Level 136mEq/L (134-144) Potassium Level 4.3mEq/L (3.5-5.2) Chloride Level 101mEq/L (97-108) Carbon Dioxide Level 20mmol/L (18-29) Blood Urea Nitrogen 28mg/dL (8-27) Creatinine 1.14mg/dL (0.76-1.27) Estimat Glomerular Filtration Rate 65mL/min (>59) Glucose Level 107mg/dL (60-99) Calcium Level 9.2mg/dL (8.5-10.1) Discharge Medications Discharge Medications Amitriptyline (Amitriptyline) 10 Mg Tablet 20 MG PO HS (Reported) Aspirin Chew (Aspirin Chew) 81 Mg Chew 81 MG PO DAILY Prescribed by: JOHN MCGRATH MD Atorvastatin Calcium (Atorvastatin Calcium) 40 Mg Tablet 40 MG PO HS Prescribed by: JOHN MCGRATH MD Carvedilol (Coreg) 6.25 Mg Tablet 6.25 MG PO BID Prescribed by: JOHN MCGRATH MD Cholecalciferol (Vitamin D3) (Vitamin D3) 2,000 Unit Tablet 4,000 UNIT PO QAM ( Reported) Fish Oil/Dha/Epa (Fish Oil 1,200 mg Fish Oil) 1 Each Capsule 1 EACH PO BIDWM ( Reported) Lisinopril (Lisinopril) 5 Mg Tablet 5 MG PO HS Prescribed by: JOHN MCGRATH MD Multivits-Min/FA/Lycopene/Lut (Centrum Silver Tablet) 1 Each Tablet 1 EACH PO QAM (Reported) PredniSONE (PredniSONE) 1 Mg Tab 1-4 MG PO DAILYWM (Reported) PREDNISONE 4 MG IN AM AND 2 MG IN PM PredniSONE (PredniSONE) 1 Mg Tab 1-2 MG PO DAILYWD (Reported) PREDNISONE 4 MG IN AM AND 2 MG IN PM Tadalafil (Cialis) 5 Mg Tablet 5 MG PO HS (Reported) Followup Plan Disposition: Home Follow-up plan 1. Followup with primary care provider within one week 2. Followup with Cardiology (Dr. Mas) in 4-6 weeks. Call to setup appointment [facility] [address] [place] [address] Discharge Diet: Low fat, Low Sodium, Heart Healthy Discharge Activity: No restrictions Patient Instructions Seek immediate medical attention if any new or worsening signs or symptoms occur. Follow-up Provider: Wilton Alvarado MD Follow-up with PCP in: 1 week Provider: Guadalupe Johnson MD Follow-up in: Other (4-6 weeks) Time spent 40 min copies to: Wilton Alvarado MD; Guadalupe Johnson MD, [place]oud Dec 24, 2016 16:35
== END 2016-12-24 17:25 | disposition home or self-care (01) | DRG 286 ==
LOC: SED 14:34 → MPC 17:11
PROVIDERS: ADMIT Internal Medicine; ATTEND Internal Medicine
PROC: 4A023N8 Measurement of Cardiac Sampling and Pressure, Bilateral, Percutaneous Approach (ICD-10-PCS; principal; 2016-12-23)
PROC: B2111ZZ Fluoroscopy of Multiple Coronary Arteries using Low Osmolar Contrast (ICD-10-PCS; 2016-12-23)
PROC: B2151ZZ Fluoroscopy of Left Heart using Low Osmolar Contrast (ICD-10-PCS; 2016-12-23)
PROC: 4A1239Z Monitoring of Cardiac Output, Percutaneous Approach (ICD-10-PCS; 2016-12-23)
DX: I50.23 Acute on chronic systolic (congestive) heart failure (principal); J96.01 Acute respiratory failure with hypoxia; N17.9 Acute kidney failure, unspecified; I42.9 Cardiomyopathy, unspecified; I42.0 Dilated cardiomyopathy; C61 Malignant neoplasm of prostate; M79.7 Fibromyalgia; I10 Essential (primary) hypertension; M35.3 Polymyalgia rheumatica; I44.0 Atrioventricular block, first degree; E87.6 Hypokalemia; I34.0 Nonrheumatic mitral (valve) insufficiency; Z87.891 Personal history of nicotine dependence; Z79.52 Long term (current) use of systemic steroids